=== PATIENT | female | born 1975 | race Caucasian/White ===

== ENCOUNTER 2017-03-19 00:38 | Inpatient (IN) ==
[2017-03-19 02:58] LABS: Basophils # 0.1 10*3/uL (0.0-0.2); Basophils % 0.7 % (0.0-0.8); Eosinophils # 0.1 10*3/uL (0.0-0.87); Eosinophils % 0.7 % (0.00-10.9); Hematocrit 38.6 VOL% (35.7-47.0); Hemoglobin 13.3 GM/DL (12.0-16.0); Immature Granulocytes % 0.1 %; Immature Granulocytes Absolute 0.01 #; Lymphocytes # 1.7 10*3/uL (1.4-4.0); Lymphocytes % 23.4 % (21.3-54.2); Mean Corpuscular HGB Conc 34.5 GM/DL (32-36); Mean Corpuscular Hemoglobin 32 PG (27-34); Mean Corpuscular Volume 92.1 FL (87-102); Mean Platelet Volume 12.7 FL (9.6-12.0); Monocytes # 0.5 10*3/uL (0.11-0.8); Monocytes % 6.3 % (1.7-12.7); Neutrophils # 5.1 10*3/uL (1.4-7.4); Neutrophils % 68.8 % (38.7-73.9); Platelet Count 194 T/CUMM (130-400); Red Blood Count 4.19 MC/CUMM (3.8-5.5); Red Cell Distribution Width 13.4 % (9.3-17.3); White Blood Count 7.5 T/CUMM (4-12)
[2017-03-19 03:07] LABS: Albumin 3.4 G/DL (3.4-5.0); Bilirubin,Total 0.4 MG/DL (0.2-1.0); Calcium 8.9 MG/DL (8.5-10.1); Osmolality,Calculated 283.3 MOS/KG (273-304); Potassium 3.3 MMOL/L (3.5-5.1); Total Protein 6.6 G/DL (6.4-8.3)
--- NOTE | 2017-03-19 04:04 | Emergency Department Note ---
Arrival - Arrival Chief Complaint: Chest Pain Stated Complaint: chest pain back hurting throwing up cant breathe ED Nursing Triage Note: Patient to triage with c/o chest pain and SOB that has been intermittently going on since 02/09/17, patient has been seen numerous times at another facility and dx with sarcoidosis and is scheduled to have PFT and CT performed this month but the pain and SOB became unbareable tonight. Patient states the pain is in the center of her chest, radiates through to her back and she has N/V and is dry heaving during triage. ekg obtained in triage. Mode of Arrival: Ambulatory Time Seen by Provider: 03/19/17 01:57 - History of Present Illness HPI Narrative: This is a 41-year-old white female who has had sarcoidosis Ruth more than 10 years ago who presents with intractable cough since February 09, 2017 for which she has been to her family physician who treated her with antibiotics inhalers and steroids without improvement who presents with ongoing intractable cough which has become so severe that she vomits. She has dyspnea on exertion of 10 feet. She denies any chest pain palpitations nor syncope. Date of Last Menstrual Period: "last month" Allergies/Adverse Reactions: Allergies Allergy/AdvReac Type Severity Reaction Status Date / Time cephalexin [From Keflex] Allergy Mild Unknown/Unable Verified 03/19/17 00:47 to obtain Home Medications: Home Medications Medication Instructions Recorded Confirmed Type Lactobacillus Combo No.6 1 each PO DAILY 08/27/15 08/28/15 History [Probiotic Complex] Norethindrone [Liza-Be] 0.35 mg PO DAILY 08/27/15 08/28/15 History Oxycodone HCl/Acetaminophen 1 each PO Q4HR PRN #15 tablet 08/28/15 Rx [Percocet 7.5-325 mg Tablet] Review of System - Review of System Constitutional: Absent: fever, night sweats Eyes: Absent: redness, vision change Respiratory: Present: cough, wheezing. Absent: respiratory distress Cardiovascular: Present: dyspnea on exertion, orthopnea. Absent: palpitations Gastrointestinal: Absent: nausea, vomiting, diarrhea, constipation Genitourinary female: Absent: dysuria, frequency Musculoskeletal: Absent: joint swelling, lower back pain Skin: Absent: rash, change in hair/nails Neurological: Absent: numbness, paresthesias Endocrine: Absent: polydipsia, polyuria Hematological/Lymphatic: Absent: easy bruising, lymphadenopathy Allergic/Immunologic: Absent: urticaria, itchy eyes Medical,Surgical,& Family Hx - Medical History Neurology: History of: TIA (28 years ago) No history of: Seizures Respiratory: History of: Respiratory Problems (sarcadosis surgery) Gastrointestinal: History of: GI Problems (occasional constipation) Hematology: History of: Bleeding Problems (RH NEGATIVE) Reproductive: History of: Ovarian Cysts - Surgical History HEENT Surgeries: Surgical HX of: Tonsilectomy & Adenoidectomy Orthopedic Surgeries: Surgical HX of;: Orthopedic Surgery (left ankle sx left ankle pin) - Social History Smoking Status: Never smoker Frequency of Alcohol Use: None Type of Drug Use: None Exam Vital Signs: Vital Signs Temperature 98.1 F 03/19/17 00:41 Pulse Rate 118 H 03/19/17 00:41 Respiratory Rate 18 03/19/17 00:55 Blood Pressure 141/117 03/19/17 00:41 O2 Sat by Pulse Oximetry 97 03/19/17 00:41 - General General appearance: alert, in no apparent distress - Eye Eye exam: Present: PERRL, EOMI - ENT ENT exam: Present: normal exam - Neck Neck exam: Present: normal inspection - Chest Chest inspection: Present: normal inspection, symmetric chest wall rise - Respiratory Respiratory exam: Present: rales - Cardiovascular Cardiovascular exam: Present: regular rate, normal rhythm - Abdominal Exam Abdominal exam: Present: soft, normal bowel sounds - Extremities Exam Extremities exam: Present: normal inspection, full ROM - Back Exam Back exam: Present: normal inspection, full ROM - Neurological Exam Neurological exam: Present: alert, oriented X3, CN II-XII intact - Psychiatric Psychiatric exam: Present: normal affect, normal mood - Skin Skin exam: Present: warm, dry Course Course Narrative: The patient's CT scan is consistent with congestive heart failure with bilateral pleural effusions and cardiomegaly. The exact cause of the congestive heart failure is not clear but may be due to sarcoidosis associated cardiomyopathy. Case was discussed with the hospitalist who agreed to admit the patient for further workup and treatment. Results - Labs CBC & BMP: 03/19/17 01:34 03/19/17 01:34 Disposition Clinical Impression: Congestive heart failure Disposition: Still a Patient Instructions: Sarcoidosis (ED) Additional Instructions: Because the patient appears to have new onset congestive heart failure with a history of sarcoidosis which may be causing sarcoidosis associated cardiomyopathy it seems reasonable patient should be admitted to the hospital for further evaluation and treatment. The case was discussed with the hospitalist.
[2017-03-19] MEDS ORDERED: FUROSEMIDE 40 MG/4 ML VIAL IV STA (04:44)
[2017-03-19] MEDS ORDERED: FUROSEMIDE 40 MG/4 ML VIAL ONE (05:04)
--- NOTE | 2017-03-19 05:38 | Hospitalist History & Physical ---
<Danni Eddy - Last Filed: 03/19/17 05:27> Assessment and Plan - Time spent with patient Time spent with patient: Less than 30 minutes (1) Congestive heart failure Status: Acute Assessment and plan: BNP 463 CTA chest pulmonary edema Trop 0.046 Lasix 40mg IV BID Telemetry bed O2 PRN Echo pending Cardiology consultation NTG SL PRN Current Visit: Yes (2) Hypokalemia Status: Acute Assessment and plan: KCL 40mEq po daily Current Visit: Yes History of Present Illness Chief complaint: shortness of breath History of present illness: Called to the ER for Ms. Mosley who is a 41 year old female that presented tonight complaining of shortness of breath. On February 08 when she went to bed she began feeling like she was smothering. She went to the ER at [facility] and received an inhaler and was told she had the heart of a 72 year old. She was awaiting an appointment with a director of partner marketing and a manager merchandising. She has both scheduled for March. For the past week, she states the shortness of breath has gotten considerably worse and has made it difficult to walk. She has had intermittent chest pain that waxes and wanes. Description of the pain is sharp, stabbing, and burning but does not radiate and is not associated with diaphoresis. No alleviating factors but lying down makes chest pain worse. She denies chest pain as of right now. Patient also complains of a dry cough for 1 week that has turned productive. She denies n/v/d or fevers. In the ER, Lasix 40mg IV was given. BNP 463. K 3.3, Trop 0.046. CTA pulmonary edema. EKG showed LBB. 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 Patient will be admitted to telemetry, serial EKGs and troponins, continued diuresis, and cardiology consultation. Home medications will be reconciled once confirmed. Patient is a full code. Home Medications Medication Instructions Recorded Confirmed Type Albuterol Neb [Proventil Neb] 1.25 mg RESP TX Q6H PRN 03/19/17 03/19/17 History Allergies Allergy/AdvReac Type Severity Reaction Status Date / Time cephalexin [From Keflex] Allergy Mild Unknown/Unable Verified 03/19/17 00:47 to obtain Medical,Surgical,& Family Hx - Medical History Cardio: History of: CHF No history of: Cardiac Dysrhythmia, Cerebrovascular Disease, Hypertension, [place] Psychological: History of: Anxiety Disorders No history of: Depression, Psychiatric/Substance Abuse Tx Neurology: History of: Cerebrovascular Accident, TIA (28 years ago) No history of: Brain Aneurysm, Seizures HEENT: No history of: HEENT Problems Endocrine: No history of: Endocrine Problems Rheumatology: No history of;: Rheumatological Problems Respiratory: History of: Respiratory Problems (sarcadosis surgery) Renal: No history of: Renal Problems Genitourinary: No history of: Problems Gastrointestinal: History of: GI Problems (occasional constipation) Musculoskeletal: History of: Herniated Disk Hematology: History of: Bleeding Problems (RH NEGATIVE), Clotting Problems (DVT to left leg) Reproductive: History of: Ovarian Cysts - Surgical History HEENT Surgeries: Surgical HX of: Tonsilectomy & Adenoidectomy Orthopedic Surgeries: Surgical HX of;: Orthopedic Surgery (left ankle sx left ankle pin) - Family History Family History: Reports;: Family Diabetes (mother), Family Heart Disease (mother ), Family Hypertension (mother and father), Family Stroke (mother) - Social History Smoking Status: Never smoker Frequency of Alcohol Use: None Type of Drug Use: None Marital Status: Lives With:: Spouse Functional capacity: independent ambulation - Constitutional Constitutional: Present: fatigue. Absent: anorexia, chills, frequent falls, headache(s), night sweats, weakness - EENT Eyes: Absent: blurry vision Ears: Absent: decreased hearing Nose, mouth and throat: Absent: headache(s), lip swelling, nasal congestion, throat swelling - Cardiovascular Cardiovascular: Present: chest pain at rest, dyspnea, dyspnea on exertion. Absent: edema, lightheadedness, orthopnea, PND - Respiratory Respiratory: Present: cough, dyspnea, dyspnea on exertion. Absent: hemoptysis, wheezing - Gastrointestinal Gastrointestinal: Present: nausea, vomiting. Absent: abdominal pain, diarrhea, dyspepsia - Genitourinary Genitourinary: Absent: difficulty urinating - Musculoskeletal Musculoskeletal: Present: back pain - Neurological Neurological: Absent: confusion, convulsions, dizziness, syncope - Psychiatric Psychiatric: Present: anxiety - Endocrine Endocrine: Absent: cold intolerance, heat intolerance - Hematologic/Lymphatic Hematologic/Lymphatic: Absent: easy bleeding, easy bruising Exam - Constitutional Vitals: Period Temp Pulse Resp BP Sys/Panchal Pulse Ox Last 24 Hr 98.1 F-98.1 F 118-118 18-20 141-141/117-117 97 General appearance: no acute distress, over weight - Head Head exam: Present: normal inspection, normocephalic - Eye Eye exam: Present: EOMI Pupils: Present: MONIKA, normal accommodation - ENT ENT exam: Present: normal exam - Neck Neck exam: Present: normal inspection - Respiratory Respiratory exam: Present: rales (Respirations even and non-labored with symmetrical rise and fall of chest noted. ) - Cardiovascular Cardiovascular exam: Present: regular rate and rhythm. Absent: diastolic murmur , systolic murmur - GI/Abdominal GI/Abdominal exam: Present: normal bowel sounds, soft. Absent: firm, tenderness - Extremities Exam Extremities exam: Present: normal inspection, normal capillary refill, full ROM , other (right lower leg paralysis) - Neurological Exam Neurological exam: Present: alert, oriented X3 (Makes good eye contact. Answers questions appropriately. ) - Psychiatric Psychiatric exam: Present: anxious - Skin Skin exam: Present: normal color, warm, dry, intact Results - Labs CBC & BMP: 03/19/17 01:34 03/19/17 01:34 Lab Results: I have reviewed the past 24 hour labs - EKG EKG results: interpreted by ERMD - Diagnostic Findings Procedure: CT - chest: report reviewed by me (pulmonary edema) <Nuria Vale - Last Filed: 03/19/17 12:02> Assessment and Plan (1) Congestive heart failure Status: Acute Current Visit: Yes (2) Hypokalemia Status: Acute Current Visit: Yes (3) Sarcoid Status: Acute Current Visit: Yes History of Present Illness History of present illness: Ms. Mosley is a 41 year old female admitted for workup of congestive heart failure. I have personally seen and examined this patient today. I agree with the below note as prepared by the advanced practice provider. I agree with the assessment and plan. Patient seen and examined. No acute events overnight. Case discussed with nursing staff. Labs reviewed. The patient has a history of sarcoidosis diagnosed approximately 16 years ago on lung biopsy. Her presentation may be related to her chronic history of sarcoidosis. Cardiology consult reviewed and echo pending. Consider pulmonary consultation. The patient and her family members expressed their understanding and all of their questions were answered appropriately. Further recommendations will depend on her response to therapy. Medical,Surgical,& Family Hx - Medical History Rheumatology: History of;: Rheumatological Problems (Sarcoidosis) Respiratory: History of: Respiratory Problems 12 point system: reviewed and no additional remarkable complaints except as stated - Cardiovascular Cardiovascular: Present: as per HPI, dyspnea, dyspnea on exertion, edema Exam - Constitutional Vitals: Period Temp Pulse Resp BP Sys/Panchal Pulse Ox Last 24 Hr 98.1 F-99.4 F 105-118 18-20 125-141/106-117 92-97 - Cardiovascular Cardiovascular exam: Present: regular rate and rhythm - Extremities Exam Extremities exam: Present: edema, other Results - Labs CBC & BMP: 03/19/17 01:34 03/19/17 01:34 Lab Results: I have reviewed the past 24 hour labs
[2017-03-19] MEDS ORDERED: NITROGLYCERIN SL 0.4 MG TABLET SL PRN (06:58)
[2017-03-19] MEDS ORDERED: guaiFENesin/DM ER 600-30 MG TABLET PO PRN (06:58)
[2017-03-19] MEDS ORDERED: MORPHINE 2 MG/1 ML SYRINGE IV PRN (06:58)
--- NOTE | 2017-03-19 07:16 | Order Completion Report ---
See report scanned to EMR
[2017-03-19] MEDS: ONDANSETRON 4 MG/2 ML VIAL IV PRN ×2 (08:18→16:48)
--- NOTE | 2017-03-19 08:54 | Order Completion Report ---
See report scanned to EMR
--- NOTE | 2017-03-19 09:06 | CT Report ---
Exam: CT angiography chest without and with intravenous contrast Clinical History: 41 years,Female,shortness of breath, chest pain Technique: Axial computed tomographic angiography images of the chest without and with intravenous contrast using pulmonary embolism protocol. The CT exam was performed using one or more of the following dose reduction techniques: Automated exposure control, adjustment of the mA and/or kV according to patient size, or use of iterative reconstruction technique. Contrast: 100 mL of Omnipaque 350 administered intravenously Comparison: No relevant comparison studies available Findings: Pulmonary arteries: No vascular intraluminal filling defects to suggest pulmonary embolism Aorta: No dissection or thoracic aortic aneurysm. Lungs: Central interlobular septal thickening with groundglass opacities. Pleural spaces: Moderate bilateral pleural effusions Heart: Cardiomegaly Mediastinum: Intact Bones/joints: Intact. No acute fracture. No dislocation. Soft tissues: Unremarkable. Lymph nodes: No enlarged lymph nodes Impression: 1. No evidence of pulmonary embolism 2. Pulmonary edema PROCEDURE INTERPRETED AT [facility] DEPARTMENT OF RADIOLOGY Final Report Signed by: Sameer Eden MD
[2017-03-19 09:10] LABS: Risk Ratio 4.5; VLDL CHOLESTEROL 51.8 MG/DL
[2017-03-19] MEDS: ENOXAPARIN 40 MG/0.4 ML SYRINGE SUBCUT SCH (09:21)
[2017-03-19] MEDS: POTASSIUM CHLORIDE 20 MEQ TABLET PO SCH (09:23)
[2017-03-19] MEDS: PANTOPRAZOLE 40 MG TABLET PO SCH (09:24)
[2017-03-19] MEDS: DOCUSATE SODIUM 100 MG CAPSULE PO SCH ×2 (09:24→21:36)
--- NOTE | 2017-03-19 09:38 | Cardiology Consult Note ---
Assessment and Plan (1) Congestive heart failure Status: Acute Assessment and plan: 81-year-old female, history of sarcoidosis, congenital neurological defect/ weakness, remote history of DVT, morbid obesity. Presented with pulmonary edema , acute CHF, left bundle branch block of unknown chronicity. 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 -Discussed rationale for cardiac workup, prognosis -Echo -Evaluate for secondary causes of cardiomyopathy. Check TFTs, iron/vit levels. She is not anemic -LDL normal -Continue diuresis with IV Lasix, replete and monitor electrolytes closely, keep on telemetry -Once stable, we may start beta-seth and RHONDA inhibitor for Cardiolite -She will need ischemic workup. 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 This is high risk for SCD. If no other etiology is established, we will need to pursue cardiac MRI, if that is positive for sarcoid involvement, she is a candidate for [employer]. Otherwise, we would just treat her medically, bridge with a LifeVest and reassess ejection fraction, CHF symptoms 3 months later -Cardiac Rehab consult. She is morbidly obese Current Visit: Yes (2) Sarcoid Status: Acute Current Visit: Yes (3) Hypokalemia Status: Acute Current Visit: Yes History of Present Illness - Data of Consult Patient: new to practice Consult date: 03/19/17 - Consult Narrative Reason for consult: chf, pulm edema History of present illness: Ms. Mosley is a 41 year old female, with history of congenital unilateral weakness , likely due to complications, remote history of DVT. She was diagnosed with sarcoid disease several years ago. She does not remember being a specialist or getting immunosuppressant treatment for this. Her symptoms were mostly shortness of breath and cough. She had some workup in the remote past, including a mediastinal biopsy. In January, she presented to [facility] with worsening shortness of breath, orthopnea. Outpatient evaluation was planned. She did not make it to the planned appointments, as they were set up in mid- March. She noticed worsening orthopnea shortness of breath and unable to get much sleep due to her symptoms recently. No leg swelling, no chest pain or fevers. Chest CT angiogram showed pulmonary edema, no PE. She has cardiomegaly. She got IV Lasix in the ER, with good symptomatic improvement. EKG sinus tachycardia, left bundle branch block. She denies syncope or palpitations. Troponin was normal, BNP was elevated. CC: Nuria Vale MD - Home Medications and Allergies Home Medications: Home Medications Medication Instructions Recorded Confirmed Type Albuterol Neb [Proventil Neb] 1.25 mg RESP TX Q6H PRN 03/19/17 03/19/17 History Allergies/Adverse Reactions: Allergies Allergy/AdvReac Type Severity Reaction Status Date / Time cephalexin [From Keflex] Allergy Mild Unknown/Unable Verified 03/19/17 00:47 to obtain 12 point system: reviewed and no additional remarkable complaints except as stated Medical,Surgical,& Family Hx - Medical History Cardio: History of: CHF, Cardiovascular Problems (cardiomyopathy; DVT L leg age 16) No history of: Cardiac Dysrhythmia, Cerebrovascular Disease, Hypertension, [place] Psychological: History of: Anxiety Disorders No history of: Depression, Psychiatric/Substance Abuse Tx Neurology: History of: Cerebrovascular Accident (as a child- no deficits), TIA ( 28 years ago) No history of: Brain Aneurysm, Seizures HEENT: No history of: HEENT Problems Endocrine: No history of: Endocrine Problems Rheumatology: No history of;: Rheumatological Problems Respiratory: History of: Pulmonary Hypertension (dx this hospital visit), Respiratory Problems (sarcadosis surgery) No history of: Obstructive Sleep Apnea Renal: No history of: Renal Problems Genitourinary: No history of: Problems Gastrointestinal: History of: GI Problems (occasional constipation) Musculoskeletal: History of: Back/Neck Problems (chronic pain), Herniated Disk, 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) Hematology: History of: Bleeding Problems (RH NEGATIVE), Clotting Problems (DVT to left leg) Reproductive: History of: Ovarian Cysts, Reproductive Problems ("frozen ovary") Other: History of: Miscellaneous Medical Problems (Sarcoidosis) - Surgical History Thoracic Surgeries: Patient denies;: Lobectomy Neurologic Surgeries: Patient denies: Brain Aneurysm, Neurologic Surgery HEENT Surgeries: Surgical HX of: Tonsilectomy & Adenoidectomy Abdominal Surgeries: Patient denies: Abdominal Surgery Reproductive Surgeries: Surgical HX of;: Gynecologic Surgery (Ovary removed) Patient denies;: Genitourinary Surgery Orthopedic Surgeries: Surgical HX of;: Orthopedic Surgery (left ankle sx left ankle pin) - Family History Family History: Reports;: Family Diabetes (mother), Family Heart Disease (mother ), Family Hypertension (mother and father), Family Stroke (mother) - Social History Smoking Status: Never smoker Frequency of Alcohol Use: None Type of Drug Use: None Physical Examination Vital Signs Temp Pulse Resp BP Pulse Ox 98.1 F 118 H 20 141/117 97 03/19/17 00:41 03/19/17 00:41 03/19/17 00:41 03/19/17 00:41 03/19/17 00:41 General: Present: No Apparent Distress HEENT: Present: Mucus Membranes Moist Neck: Present: Supple Neck, No Bruit, Other (Unable to assess JVD, thick neck) Cardiac: Present: Reg Rate and Rhythm, Systolic Murmur, Dilated, Other ( Tachycardia) Lungs: Present: Decreased Breath Sounds, Rales - Left, Rales - Right Neuro: Present: Grossly Intact Abdomen: Present: Soft, Active Bowel Sounds Skin: Present: Clear Extremities: Present: No Clubbing, No Cyanosis, No Edema Result/EKG - Labs CBC & BMP: 03/19/17 01:34 03/19/17 01:34 Lab Results: I have reviewed the past 24 hour labs Labs: Laboratory Results - last 24 hr 03/19/17 03/19/17 03/19/17 01:34 01:34 01:34 WBC 7.5 RBC 4.19 Hgb 13.3 Hct 38.6 MCV 92.1 MCH 32 MCHC 34.5 RDW 13.4 Plt Count 194 MPV 12.7 H Neut % (Auto) 68.8 Lymph % (Auto) 23.4 Dunn % (Auto) 6.3 Eos % (Auto) 0.7 Baso % (Auto) 0.7 Neut # (Auto) 5.1 Lymph # (Auto) 1.7 Dunn # (Auto) 0.5 Eos # (Auto) 0.1 Baso # (Auto) 0.1 Immature Gran % 0.1 Nucleated RBC % 0.0 Immature Gran # 0.01 Nucleated RBCs # 0.00 Immature Plt Fraction 0.0 Sodium 141 Potassium 3.3 L Chloride 107 Carbon Dioxide 23 Anion Gap 14.3 BUN 14 Creatinine 0.80 GFR Calculation 132 BUN/Creatinine Ratio 17.00 Glucose 132 H Calculated Osmolality 283.3 Calcium 8.9 Total Bilirubin 0.40 AST 50 H ALT 65 H Alkaline Phosphatase 70 Lactate Dehydrogenase 264 H Troponin I C-Reactive Protein < 0.31 B-Natriuretic Peptide Total Protein 6.6 Albumin 3.4 Globulin 3.2 Albumin/Globulin Ratio 1.0 L Triglycerides Cholesterol LDL Cholesterol VLDL Cholesterol HDL Cholesterol Heart Disease Risk Ratio 03/19/17 03/19/17 03/19/17 01:34 01:34 07:27 WBC RBC Hgb Hct MCV MCH MCHC RDW Plt Count MPV Neut % (Auto) Lymph % (Auto) Dunn % (Auto) Eos % (Auto) Baso % (Auto) Neut # (Auto) Lymph # (Auto) Dunn # (Auto) Eos # (Auto) Baso # (Auto) Immature Gran % Nucleated RBC % Immature Gran # Nucleated RBCs # Immature Plt Fraction Sodium Potassium Chloride Carbon Dioxide Anion Gap BUN Creatinine GFR Calculation BUN/Creatinine Ratio Glucose Calculated Osmolality Calcium Total Bilirubin AST ALT Alkaline Phosphatase Lactate Dehydrogenase Troponin I 0.046 H 0.045 C-Reactive Protein B-Natriuretic Peptide 463 H Total Protein Albumin Globulin Albumin/Globulin Ratio Triglycerides Cholesterol LDL Cholesterol VLDL Cholesterol HDL Cholesterol Heart Disease Risk Ratio 03/19/17 07:27 WBC RBC Hgb Hct MCV MCH MCHC RDW Plt Count MPV Neut % (Auto) Lymph % (Auto) Dunn % (Auto) Eos % (Auto) Baso % (Auto) Neut # (Auto) Lymph # (Auto) Dunn # (Auto) Eos # (Auto) Baso # (Auto) Immature Gran % Nucleated RBC % Immature Gran # Nucleated RBCs # Immature Plt Fraction Sodium Potassium Chloride Carbon Dioxide Anion Gap BUN Creatinine GFR Calculation BUN/Creatinine Ratio Glucose Calculated Osmolality Calcium Total Bilirubin AST ALT Alkaline Phosphatase Lactate Dehydrogenase Troponin I C-Reactive Protein B-Natriuretic Peptide Total Protein Albumin Globulin Albumin/Globulin Ratio Triglycerides 259 H Cholesterol 171 LDL Cholesterol 110.0 VLDL Cholesterol 51.8 HDL Cholesterol 38 L Heart Disease Risk Ratio 4.50 - EKG EKG results: interpreted by me Specialty Discharge - Follow Up or Referrals
[2017-03-19] MEDS: FUROSEMIDE 40 MG/4 ML VIAL IV SCH ×2 (09:52→15:57)
[2017-03-19 10:38] LABS: Troponin I Only 0.046 NG/ML (0.00-0.045)
--- NOTE | 2017-03-19 13:10 | Order Completion Report ---
See report scanned to EMR
--- NOTE | 2017-03-19 13:16 | Event Note ---
I updated the patient on her high risk cardiac findings. Will keep n.p.o. after midnight, if her CHF improves, we can pursue LHC tomorrow. Rest of the workup can be pursued as an outpatient. She will need a LifeVest on discharge.
--- NOTE | 2017-03-19 13:43 | Order Completion Report ---
See report scanned to EMR
[2017-03-19] MEDS ORDERED: IBUPROFEN 600 MG TABLET PO PRN (16:56)
[2017-03-19] MEDS: ZALEPLON 5 MG CAPSULE PO PRN (21:38)
[2017-03-20 06:13] LABS: Calcium 8.6 MG/DL (8.5-10.1); Osmolality,Calculated 283.1 MOS/KG (273-304); Potassium 3.6 MMOL/L (3.5-5.1)
[2017-03-20 06:17] LABS: % Iron Saturation 23.6 % (18-50); Ferritin 78.7 ng/ml (8-252)
[2017-03-20 06:25] LABS: Folate 7.4 NG/ML (5.4-24.0)
[2017-03-20 06:37] LABS: Free T4 (Free Thyroxine) 0.92 NG/DL (0.76-1.46); Thyroid Stimulating Hormone 0.974 uIU/ml (0.358-3.74)
[2017-03-20] MEDS: ENOXAPARIN 40 MG/0.4 ML SYRINGE SUBCUT SCH (06:40)
[2017-03-20] MEDS: FUROSEMIDE 40 MG/4 ML VIAL IV SCH ×2 (07:32→16:30)
--- NOTE | 2017-03-20 08:21 | Electrophysiology Progress Not ---
Assessment and Plan (1) Congestive heart failure Status: Acute Assessment and plan: 81-year-old female, history of sarcoidosis, congenital neurological defect/ weakness, remote history of DVT, morbid obesity. Presented with pulmonary edema , acute CHF, left bundle branch block of unknown chronicity. 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 TTE: LVEF 30%, no peric effusion -Interventional consult, may get LHC today. NPO -FU TFTs, iron/vit levels. 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 This is high risk for SCD. If no other etiology is established, we will need to pursue cardiac MRI, if that is positive for sarcoid involvement, she is a candidate for ENROLLMENT COORDINATOR-D. Otherwise, we would just treat her medically, bridge with a LifeVest and reassess ejection fraction, CHF symptoms 3 months later -Cardiac Rehab consult. She is morbidly obese Current Visit: Yes (2) Sarcoid Status: Acute Current Visit: Yes (3) Hypokalemia Status: Acute Current Visit: Yes Electrophysiology Subjective Interval history: She is feeling better, not orthopneic anymore. She had back pain this morning. Telemetry shows sinus rhythm, left bundle branch block, no sustained arrhythmia. Exam - Constitutional Vitals: Period Temp Pulse Resp BP Sys/Panchal Pulse Ox Last 24 Hr 96.2 F-98.3 F 93-105 16-20 109-139/69-115 90-92 General appearance: no acute distress, morbidly obese - Head Head exam: Present: normal inspection. Absent: contusion, hematoma - Eye Eye exam: Absent: periorbital swelling, scleral icterus Pupils: Absent: dilated - ENT ENT exam: Present: normal external ear exam - Neck Neck exam: Present: other (Unable to assess for JVD, thick neck) - Respiratory Respiratory exam: Present: clear to auscultation bilaterally. Absent: chest wall tenderness, rhonchi, wheezes - Cardiovascular Cardiovascular exam: Present: regular rate and rhythm, systolic murmur. Absent : JVD, tachycardia - GI/Abdominal GI/Abdominal exam: Present: normal bowel sounds. Absent: distended - Extremities Exam Extremities exam: Present: normal inspection, normal capillary refill, edema (1+ ) - Back Exam Back exam: Present: normal inspection - Neurological Exam Neurological exam: Present: alert, oriented X3 - Psychiatric Psychiatric exam: Present: normal affect, normal mood. Absent: anxious Results - Labs CBC & BMP: 03/19/17 01:34 03/20/17 04:25 Lab Results: I have reviewed the past 24 hour labs Specialty Discharge - Follow Up or Referrals
[2017-03-20] MEDS: ONDANSETRON 4 MG/2 ML VIAL IV PRN (08:30)
[2017-03-20] MEDS: DOCUSATE SODIUM 100 MG CAPSULE PO SCH ×2 (09:05→22:06)
--- NOTE | 2017-03-20 09:16 | Cardiology Progress Note ---
Cardiology - PN: Subj Interval history: Cardiology note 41-year-old woman with biopsy-proven sarcoidosis at age 24. Presents with first episode CHF She had atypical chest pain on admission EKG shows left bundle branch block Regular rhythm no gallop Decreased breath sounds but clear Femoral pulses are 2+ and deep. Distal pulses 2+. Recent echo showed ejection fraction of 30% with grade 3 diastolic dysfunction, structurally normal valves, moderate TR PA pressure 55 Impression Cardiomyopathy EF 30% with grade 3 diastolic dysfunction. First episode congestive heart failure Sarcoidosis diagnosed at age 24 Chronic left bundle branch block Morbid obesity Rule out DEION Lifetime non-smoker Hypokalemia corrected Atypical chest pain Plan Cardiac cath by Dr. Butler. Procedure, risk benefit discussed with patient and her . All questions answered. He agrees to proceed as outlined. Exam (Progress Note) - Constitutional Vitals: Period Temp Pulse Resp BP Sys/Panchal Pulse Ox Last 24 Hr 96.2 F-98.3 F 93-105 16-20 109-139/69-115 90-92 Result/EKG - Labs CBC & BMP: 03/19/17 01:34 03/20/17 04:25 Labs: Laboratory Results - last 24 hr 03/19/17 03/19/17 03/20/17 07:27 09:56 04:25 Sodium 142 Potassium 3.6 Chloride 105 Carbon Dioxide 28 Anion Gap 12.6 BUN 17 Creatinine 0.70 GFR Calculation 156 BUN/Creatinine Ratio 24.00 H Glucose 89 Calculated Osmolality 283.1 Calcium 8.6 Magnesium 2.0 Iron TIBC % Saturation Ferritin Total Creatine Kinase 69 CK-MB (CK-2) < 1.0 Troponin I 0.046 H B-Natriuretic Peptide Triglycerides 259 H Cholesterol 171 LDL Cholesterol 110.0 VLDL Cholesterol 51.8 HDL Cholesterol 38 L Heart Disease Risk Ratio 4.50 Vitamin B12 Folate Free T4 TSH 3rd Generation 03/20/17 03/20/17 03/20/17 04:25 04:25 04:25 Sodium Potassium Chloride Carbon Dioxide Anion Gap BUN Creatinine GFR Calculation BUN/Creatinine Ratio Glucose Calculated Osmolality Calcium Magnesium Iron 62 TIBC 263 % Saturation 23.6 Ferritin 78.7 Total Creatine Kinase CK-MB (CK-2) Troponin I B-Natriuretic Peptide 530 H Triglycerides Cholesterol LDL Cholesterol VLDL Cholesterol HDL Cholesterol Heart Disease Risk Ratio Vitamin B12 Folate Free T4 0.92 TSH 3rd Generation 0.974 03/20/17 04:25 Sodium Potassium Chloride Carbon Dioxide Anion Gap BUN Creatinine GFR Calculation BUN/Creatinine Ratio Glucose Calculated Osmolality Calcium Magnesium Iron TIBC % Saturation Ferritin Total Creatine Kinase CK-MB (CK-2) Troponin I B-Natriuretic Peptide Triglycerides Cholesterol LDL Cholesterol VLDL Cholesterol HDL Cholesterol Heart Disease Risk Ratio Vitamin B12 521 Folate 7.4 Free T4 TSH 3rd Generation Specialty Discharge - Follow Up or Referrals
[2017-03-20] MEDS ORDERED: MAGNESIUM SULF RIDER 2 GM in PREMIX 1 EACH IV PRN (09:17)
[2017-03-20] MEDS ORDERED: POTASSIUM CHLORIDE RIDER 10 MEQ in PREMIX 1 EACH IV PRN (09:17)
[2017-03-20] MEDS ORDERED: DIAZEPAM 5 MG TABLET PO ONE (09:17)
[2017-03-20] MEDS ORDERED: diphenhydrAMINE CAP 25 MG CAPSULE PO ONE (09:17)
--- NOTE | 2017-03-20 09:17 | History and Physical Update ---
Sedation H&P Update - History and Physical H&P was reviewed, the patient examined and there: are no changes in the patients condition since last H&P was completed. - Dictation Physical: refer to H&P completed by admitting physician - Sedation ASA Class: II Airway Assessment: Class II: Soft palate, uvula, fauces visible
[2017-03-20] MEDS ORDERED: SODIUM CHLORIDE 0.45% 1,000 ML IV SCH (09:30)
[2017-03-20] MEDS ORDERED: PROMETHAZINE 25 MG/1 ML VIAL ONE (09:44)
[2017-03-20] MEDS ORDERED: PROMETHAZINE 25 MG/1 ML VIAL IM ONE (09:45)
[2017-03-20] MEDS: POTASSIUM CHLORIDE 20 MEQ TABLET PO SCH (09:51)
[2017-03-20] MEDS: PANTOPRAZOLE 40 MG TABLET PO SCH (09:51)
[2017-03-20 10:08] LABS: INR 1.2; PT Patient Result 12.3 SECS
--- NOTE | 2017-03-20 10:59 | Hospitalist Progress Note ---
Assessment and Plan (1) Congestive heart failure Status: Acute Assessment and plan: Continue Lasix and Aldactone. Left heart cath planned for later today. Start Aldactone Start RHONDA inhibitor Continue Lasix Follow-up left heart cath report Current Visit: Yes Qualifiers: Congestive heart failure type: systolic Congestive heart failure chronicity : acute on chronic Qualified Code(s): I50.23 - Acute on chronic systolic ( congestive) heart failure (2) Hypokalemia Status: Resolved Assessment and plan: Replaced. Potassium 3.6. Current Visit: Yes (3) Sarcoid Status: Acute Current Visit: Yes Hospitalist: Subjective Interval history: Patient seen and examined. No acute events overnight. Case discussed with nursing staff. Labs reviewed. Echocardiogram reviewed shows an ejection fraction of 30%. Left heart cath planned for today to rule out ischemic cardiomyopathy. The patient's having nausea and anxiety this morning and is receiving Zofran and Phenergan for Exam - Constitutional Vitals: Period Temp Pulse Resp BP Sys/Panchal Pulse Ox Last 24 Hr 96.2 F-98.3 F 93-105 16-20 109-139/69-115 90-92 Exam: Constitutional System: No distress. No tremulousness. Head: Normocephalic, atraumatic. Ears, Nose and Throat System: No pain or tenderness. No epistaxis or discharge Eyes System: Pupils equal, round, and reactive. Extraocular muscles intact. Neck: Supple, without adenopathy, No jugular venous distention. No thyromegaly, neck mass, or prior surgery apparent. Respiratory System: Chest clear to auscultation. Cardiovascular System: Heart with regular rate and rhythm. No murmur. GI System: Abdomen soft, nontender. Normo active bowel sounds present. Musculoskeletal System: limbs with minimal pedal edema. Full distal pulses. Normal capillary refill. Neurological System: No discernable sensory deficit. No aphasia Psychiatric System: Conversation is rational Results - Labs CBC & BMP: 03/19/17 01:34 03/20/17 04:25 Lab Results: I have reviewed the past 24 hour labs Specialty Discharge - Follow Up or Referrals
[2017-03-20] MEDS ORDERED: ASPIRIN 325 MG TABLET ONE (11:46)
[2017-03-20] MEDS ORDERED: ASPIRIN 325 MG TABLET PO ONE (11:47)
--- NOTE | 2017-03-20 11:55 | History and Physical Update ---
Sedation H&P Update - History and Physical H&P was reviewed, the patient examined and there: are no changes in the patients condition since last H&P was completed. - Dictation Physical: refer to H&P completed by admitting physician - Physical Exam Mental Status: alert and oriented Heart: regular rate and rhythm Lung: clear to auscultation Abdomen: within normal limits Vitals: within normal limits - Sedation Plan for Sedation: minimal Patient Consent: Procedure disscussed with patient and patinet has consented., Risks and benefits were discussed with patient,including infection,, bleeding, injury to surrounding structures, seizure, temporary nerve, Patient understands and accepts potential risks/benefits and agrees to, proceed. (Left heart cath and possible PTCA or stent were discussed with the patient. The risk of the procedure include but are not limited to a small risk of injury to the vessel, abnormal heart rhythm, stroke, heart attack, need for emergent surgery, contrast reaction, restenosis, infection, or . The patient voices understanding, agrees with the plan, and desires to proceed with the heart catheterization.) ASA Class: II Airway Assessment: Class II: Soft palate, uvula, fauces visible
[2017-03-20] MEDS ORDERED: MIDAZOLAM 2 MG/2 ML VIAL ONE (12:06)
[2017-03-20] MEDS ORDERED: LIDOCAINE 1% 20 ML VIAL ONE (12:06)
[2017-03-20] MEDS ORDERED: MEPERIDINE 25 MG/1 ML VIAL ONE (12:06)
--- NOTE | 2017-03-20 14:50 | Operative Note ---
Date of procedure: 03/20/17 Procedure Preformed: Left heart cath Coronary angiography Left ventriculography Angiogram of the right femoral artery Angio-Seal of the right femoral artery-successful Surgeon / Physician: Jr Butler Customer Operations Specialist: Angeles Eli Post-op diagnosis: same (Atypical chest pain, new onset heart failure, cardiomyopathy, EF by echocardiogram of 30%. Evaluate for underlying ischemia as a cause of the cardiomyopathy and chest pain) Findings: Impression: No significant obstructive coronary disease-minimal luminal irregularities Mild distal vessel tortuosities Severe global left systolic dysfunction, overall LVEF is about 20% Moderate LV enlargement 3+ MR Severe elevation of LVEDP, 36 mmHg Angiogram of the right femoral artery Angio-Seal right femoral artery-successful Plan/recommendations: Based on the study, the patient's atypical chest pain and her cardiomyopathy is not due to significant ischemic heart disease. Dr. Aidan Moore will decide on further medical management of her cardiomyopathy. Her QRS is wide, so she might be as a candidate for CARPENTER APPRENTICE-D, at some point. The patient will have risk factors optimized. The patient will be on antiplatelet medications to include aspirin indefinitely. Addenda: I saw the patient post-cath. the groin puncture site and distal pulse are stable. vital signs are stable and the patient will be observed closely overnight. Specimens: none sent Estimated blood loss: minimal Condition: stable Anesthesia: local, conscious sedation Disposition: floor
[2017-03-20] MEDS ORDERED: SODIUM CHLORIDE 0.9% 1,000 ML IV SCH (15:00)
[2017-03-20] MEDS: SPIRONOLACTONE 25 MG TABLET PO SCH ×2 (17:26→22:06)
--- NOTE | 2017-03-20 17:54 | Rheumatology Consultation ---
Assessment and Plan - Time spent with patient Time spent with patient: Greater than 30 minutes (1) Congestive heart failure Status: Acute Assessment and plan: Mrs. Mosley a 41 Y F is admitted at [facility] with new onset Congestive heart failure. 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 She is already scheduled for cardiac cath today for evaluation of CAD. *I recommend Cardiac MRI in order to evaluate patient for Sarcoid related Cardiomyopathy *Continue medical management for CHF as per Epidemiologist recommendation *Will fu patient I am thankful to primary team for providing me opportunity to participate in patient care. Current Visit: Yes Qualifiers: Congestive heart failure type: systolic Congestive heart failure chronicity : acute on chronic Qualified Code(s): I50.23 - Acute on chronic systolic ( congestive) heart failure (2) Sarcoid Status: Acute Current Visit: Yes History of Present Illness - Data of Consult Patient: new to practice Consult date: 03/20/17 - Consult Narrative Reason for consult: suspected sarcoid related Cardiomyopathy History of present illness: Ms. Mosley is a 41 year old female with history of pulmonary sarcoidosis diagnosed more than 15 years ago based on pulmonary symptoms and biopsy. She received systemic sterids for 12 months or more which improved her symptoms and she stopped taking prednisone and did not follow with [facility]. She was doing fairly well till last few weeks she developed gradual onset dyspnea on exertion, got worse, associated with PND. She got admit at [facility] for further evaluation of new onset dyspnea and initial work up reported CT chest pulmonary edema without lymphadenopathy. TTE reported Reduced EF and CHF. She was started on medical management for CHF. Epidemiologist Dr. Moore evaluated patient and scheduled for cardiac cath to evaluate for coronary artery disease. Based on prior h/o Sarcoidosis, Cardiomyopathy 2* Sarcoidosis is suspected. Rheumatology consult for requested for further evaluation. According to patient, She developed gradual onset symptoms, got worse over last few weeks. She denies fever, chills, night sweats, weight loss, episode of pink eyes, dry eyes, dry mouth, abdominal pain, diarrhea, joints pain or neuropathy related symptoms. CC: Nuria Vale MD - Home Medications and Allergies Home Medications: Home Medications Medication Instructions Recorded Confirmed Type Albuterol Neb [Proventil Neb] 1.25 mg RESP TX Q6H PRN 03/19/17 03/19/17 History Allergies/Adverse Reactions: Allergies Allergy/AdvReac Type Severity Reaction Status Date / Time cephalexin [From Keflex] Allergy Mild Unknown/Unable Verified 03/19/17 00:47 to obtain - Constitutional Constitutional: Absent: fatigue, fever(s), headache(s), increased appetite, night sweats, weakness, weight gain, weight loss - EENT Eyes: Absent: loss of vision Ears: Absent: ear discharge, ear pain Nose, mouth and throat: Absent: hoarseness, nasal congestion, neck mass, neck pain, sinus pressure, sore throat, throat swelling - Cardiovascular Cardiovascular: Present: chest pain with activity - Respiratory Respiratory: Present: cough, dyspnea, dyspnea on exertion. Absent: hemoptysis, wheezing - Gastrointestinal Gastrointestinal: Absent: abdominal pain, constipation, diarrhea, heartburn, nausea, vomiting - Genitourinary Genitourinary: Absent: flank pain, hematuria - Musculoskeletal Musculoskeletal: Absent: arthralgias, back pain, joint swelling, muscle cramps, muscle weakness - Neurological Neurological: Absent: confusion, focal weakness, frequent falls, memory loss, numbness, paresthesias - Psychiatric Psychiatric: Absent: anxiety, difficulty concentrating - Endocrine Endocrine: Absent: heat intolerance, polydipsia - Hematologic/Lymphatic Hematologic/Lymphatic: Absent: lymphadenopathy Medical,Surgical,& Family Hx - Medical History Cardio: History of: CHF, Cardiovascular Problems (cardiomyopathy; DVT L leg age 16) No history of: Cardiac Dysrhythmia, Cerebrovascular Disease, Hypertension, [place] Psychological: History of: Anxiety Disorders No history of: Depression, Psychiatric/Substance Abuse Tx Neurology: History of: Cerebrovascular Accident (as a child- no deficits), TIA ( 28 years ago) No history of: Brain Aneurysm, Seizures HEENT: No history of: HEENT Problems Endocrine: No history of: Endocrine Problems Rheumatology: History of;: Rheumatological Problems (Sarcoidosis) Respiratory: History of: Pulmonary Hypertension (dx this hospital visit), Respiratory Problems No history of: Obstructive Sleep Apnea Renal: No history of: Renal Problems Genitourinary: No history of: Problems Gastrointestinal: History of: GI Problems (occasional constipation) Musculoskeletal: History of: Back/Neck Problems (chronic pain), Herniated Disk, 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) Hematology: History of: Bleeding Problems (RH NEGATIVE), Clotting Problems (DVT to left leg) Reproductive: History of: Ovarian Cysts, Reproductive Problems ("frozen ovary") Other: History of: Miscellaneous Medical Problems (Sarcoidosis) - Surgical History Thoracic Surgeries: Patient denies;: Lobectomy Neurologic Surgeries: Patient denies: Brain Aneurysm, Neurologic Surgery HEENT Surgeries: Surgical HX of: Tonsilectomy & Adenoidectomy Abdominal Surgeries: Patient denies: Abdominal Surgery Reproductive Surgeries: Surgical HX of;: Gynecologic Surgery (Ovary removed) Patient denies;: Genitourinary Surgery Orthopedic Surgeries: Surgical HX of;: Orthopedic Surgery (left ankle sx left ankle pin) - Family History Family History: Reports;: Family Diabetes (mother), Family Heart Disease (mother ), Family Hypertension (mother and father), Family Stroke (mother) - Social History Smoking Status: Never smoker Frequency of Alcohol Use: None Type of Drug Use: None Exam Rheumatology - Constitutional Vitals: Vital Signs Temp Pulse Resp BP Pulse Ox Pulse Ox 03/20/17 16:30 105 H 20 119/63 99 03/20/17 16:00 101 H 18 138/82 99 03/20/17 15:30 92 H 16 126/83 99 03/20/17 15:20 97.9 F 99 H 16 125/91 99 03/20/17 15:00 98 H 16 121/86 99 03/20/17 14:45 101 H 16 127/70 99 91 L 03/20/17 07:27 97.6 F 104 H 18 112/89 92 L 03/20/17 04:00 96.9 F L 102 H 18 139/115 91 L 03/20/17 02:20 16 03/20/17 00:05 96.2 F L 93 H 18 109/69 90 L 03/19/17 20:10 98.1 F 98 H 18 114/82 90 L 03/19/17 18:00 16 General appearance: over weight, no no acute distress - Head Head exam: Present: normal inspection - Eye Eye exam: Present: EOMI Pupils: Present: MONIKA - Neck Neck exam: Absent: lymphadenopathy, thyromegaly - Respiratory Respiratory exam: Absent: decreased breath sounds, rales - Cardiovascular Cardiovascular exam: Present: regular rate and rhythm - GI/Abdominal GI/Abdominal exam: Absent: normal bowel sounds, distended, guarding, tenderness , rebound - Extremities Exam Extremities exam: Present: normal inspection, full ROM - Back Exam Back exam: Present: normal inspection - Neurological Exam Neurological exam: Present: oriented X3, CN II-XII intact, reflexes normal - Skin Skin exam: Present: normal color - Lymphatic Lymphatic: Present: no cervical lymphadenopathy Results - Labs CBC & BMP: 03/19/17 01:34 03/20/17 04:25 Quality Measures - VTE Contraindication to Pharmacological VTE Prophylaxis: High Risk of Bleeding Specialty Discharge - Follow Up or Referrals
[2017-03-21] MEDS ORDERED: guaiFENesin/CODEINE 5 ML LIQUID PO PRN (00:44)
[2017-03-21] MEDS ORDERED: ACETAMINOPHEN 325 MG TABLET PO PRN (00:51)
[2017-03-21] MEDS ORDERED: FUROSEMIDE 40 MG/4 ML VIAL IV ONE (00:52)
[2017-03-21] MEDS ORDERED: POTASSIUM CHLORIDE 20 MEQ TABLET PO ONE (00:54)
--- NOTE | 2017-03-21 00:58 | Event Note ---
RN notified of a temperature of 101 and patient has continued to cough. Upon assessment of patient, she does have a fierce, non-productive cough with wheezes and rales on the right lower base, otherwise clear. Echo today showed EF 30%. Continued diuresis with IV Lasix and po Spironolactone 25mg po BID. Will draw blood and urine cultures, tylenol PRN, cough medicine PRN, Lasix 40mg IV, and CXR. Will repeat lab work at 4AM to check K and replace if needed. Will start patient on Rocephin 1gram IV q12.
[2017-03-21] MEDS ORDERED: LEVOFLOXACIN INJ 750 MG in PREMIX 1 EACH IV SCH (01:00)
[2017-03-21 01:17] LABS: Basophils # 0.1 10*3/uL (0.0-0.2); Basophils % 0.4 % (0.0-0.8); Eosinophils # 0.1 10*3/uL (0.0-0.87); Eosinophils % 0.5 % (0.00-10.9); Hematocrit 39.3 VOL% (35.7-47.0); Hemoglobin 13.5 GM/DL (12.0-16.0); Immature Granulocytes % 0.3 %; Immature Granulocytes Absolute 0.03 #; Lymphocytes # 1.5 10*3/uL (1.4-4.0); Lymphocytes % 12.7 % (21.3-54.2); Mean Corpuscular HGB Conc 34.4 GM/DL (32-36); Mean Corpuscular Hemoglobin 32 PG (27-34); Mean Corpuscular Volume 92.7 FL (87-102); Monocytes # 0.9 10*3/uL (0.11-0.8); Monocytes % 7.7 % (1.7-12.7); Neutrophils % 78.4 % (38.7-73.9); Platelet Count 195 T/CUMM (130-400); Red Blood Count 4.24 MC/CUMM (3.8-5.5); Red Cell Distribution Width 13.7 % (9.3-17.3); White Blood Count 11.5 T/CUMM (4-12)
[2017-03-21] MEDS: ZALEPLON 5 MG CAPSULE PO PRN ×3 (01:35→23:50)
[2017-03-21 01:46] LABS: Calcium 8.6 MG/DL (8.5-10.1); Magnesium 1.8 MG/DL (1.8-2.4); Osmolality,Calculated 283.3 MOS/KG (273-304); Potassium 3.6 MMOL/L (3.5-5.1)
[2017-03-21] MEDS: ENOXAPARIN 40 MG/0.4 ML SYRINGE SUBCUT SCH (06:22)
[2017-03-21] MEDS: ONDANSETRON 4 MG/2 ML VIAL IV PRN ×3 (06:25→20:49)
--- NOTE | 2017-03-21 07:32 | XRay Report ---
History is short of breath and coughing Comparison 08/27/2015 The heart is enlarged with vascular prominence and development of moderate diffuse interstitial pulmonary opacities without more focal consolidation seen. Hilar contours unchanged accounting for technique Impression: Interval development of moderate bilateral infiltrates versus edema PROCEDURE INTERPRETED AT [facility] DEPARTMENT OF RADIOLOGY Final Report Signed by: Dr. Katie Tejada
--- NOTE | 2017-03-21 08:42 | Order Completion Report ---
See report scanned to EMR
[2017-03-21] MEDS: PANTOPRAZOLE 40 MG TABLET PO SCH (08:46)
[2017-03-21] MEDS: SPIRONOLACTONE 25 MG TABLET PO SCH ×2 (08:46→20:47)
[2017-03-21] MEDS: POTASSIUM CHLORIDE 20 MEQ TABLET PO SCH (08:46)
[2017-03-21] MEDS: FUROSEMIDE 40 MG/4 ML VIAL IV SCH (08:47)
[2017-03-21] MEDS: DOCUSATE SODIUM 100 MG CAPSULE PO SCH ×2 (08:47→20:48)
[2017-03-21] MEDS ORDERED: LISINOPRIL 2.5 MG TABLET PO SCH (09:00)
--- NOTE | 2017-03-21 09:07 | Electrophysiology Progress Not ---
Assessment and Plan (1) Congestive heart failure Status: Chronic Assessment and plan: 81-year-old female, history of sarcoidosis, congenital neurological defect/ weakness, remote history of DVT, morbid obesity. Presented with pulmonary edema , acute CHF, left bundle branch block of unknown chronicity. 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 TTE: LVEF 30%, no peric effusion LHC: minimal CAD, EDP 36, severe CMP -We will get an appointment for cardiac MRI, [place], Dr. Blayne Cline. -Recommend to start beta-seth and RHONDA inhibitor, when CHF, volume overload improves -Follow-up with EP after the cardiac MRI. 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 This is high risk for SCD. If positive for sarcoid involvement , she is a candidate for SOCIAL MEDIA INTERN-D now. Otherwise, we would just treat her medically, bridge with a LifeVest and reassess ejection fraction, CHF symptoms 3 months later -Set up LifeVest on discharge I will sign off, please call with further questions Current Visit: Yes Qualifiers: Congestive heart failure type: systolic Congestive heart failure chronicity : acute on chronic Qualified Code(s): I50.23 - Acute on chronic systolic ( congestive) heart failure (2) Sarcoid Status: Chronic Current Visit: Yes (3) Hypokalemia Status: Resolved Current Visit: Yes Electrophysiology Subjective Interval history: [facility] showed no significant CAD. She has severe, cardiomyopathy nonischemic. Telemetry sinus tachycardia, LBBB. He is more short of breath today, temperature was mildly elevated. WBC increase She has mild shortness of breath with ambulation, no leg swelling Exam - Constitutional Vitals: Period Temp Pulse Resp BP Sys/Panchal Pulse Ox Last 24 Hr 97.9 F-101.1 F 92-108 16-20 109-142/63-91 91-99 General appearance: no acute distress, morbidly obese - Head Head exam: Present: normal inspection. Absent: contusion - Eye Eye exam: Absent: periorbital swelling, scleral icterus Pupils: Absent: dilated - ENT ENT exam: Present: normal external ear exam - Neck Neck exam: Present: normal inspection - Respiratory Respiratory exam: Present: clear to auscultation bilaterally. Absent: chest wall tenderness - Cardiovascular Cardiovascular exam: Present: regular rate and rhythm, systolic murmur, tachycardia. Absent: JVD - GI/Abdominal GI/Abdominal exam: Present: normal bowel sounds. Absent: distended - Extremities Exam Extremities exam: Present: normal inspection, normal capillary refill. Absent: edema - Back Exam Back exam: Present: normal inspection - Neurological Exam Neurological exam: Present: alert, oriented X3 - Psychiatric Psychiatric exam: Present: normal affect, normal mood - Skin Skin exam: Present: normal color, warm. Absent: cyanosis Results - Labs CBC & BMP: 03/21/17 01:09 03/21/17 01:09 Lab Results: I have reviewed the past 24 hour labs Quality Measures - VTE Contraindication to Pharmacological VTE Prophylaxis: High Risk of Bleeding Specialty Discharge - Follow Up or Referrals
--- NOTE | 2017-03-21 09:35 | Cardiology Progress Note ---
Mike Temple Vanessa RN, am scribing for, and in the presence of, Nish Moore MD 09:35. Assessment and Plan - Time spent with patient Time spent with patient: Greater than 30 minutes (1) Congestive heart failure Status: Chronic Assessment and plan: SEE PLAN OF CARE LISTED BELOW. Current Visit: Yes Qualifiers: Congestive heart failure type: systolic Congestive heart failure chronicity : acute on chronic Qualified Code(s): I50.23 - Acute on chronic systolic ( congestive) heart failure (2) Cardiomyopathy Status: Acute Assessment and plan: SEE PLAN OF CARE LISTED BELOW. Current Visit: Yes (3) Sarcoid Status: Chronic Assessment and plan: SEE PLAN OF CARE LISTED BELOW. Current Visit: Yes Cardiology - PN: Subj Interval history: Drug Discovery Informatics Specialist: Dr. Sal (new) SUMMARY: Mrs. Mosley, 41 year old WF, PMHx sarcoidosis (biopsy confirmed), remote DVT and TIA, morbid obesity. Admitted to [facility] on 03/19 with acute dyspnea, pulm edema, and found to be in new onset systolic CHF and LBBB of unknown chronicity. Echocardiogram with severely reduced LVEF 30%, moderate diastolic dysfunction, moderate TR and pulm HTN (PAP 55mmHg). CAD ruled out per [facility] on 03/[address] Butler with cath showing no significant obstructive disease, minimal luminal irregularities only, LVEDP 36. Has been evaluated by Dr. Sal for AUTOMOTIVE SERVICE CASHIER-D placement. Upon discharge, will need cardiac MRI (Dr. Blayne Cline, [place]) to evaluate for sarcoid cardiomyopathy. Being evaluated for LifeVest at discharge with medical management to ensue. Since admission, patient has been started on aggressive IV diuresis with good response. March: Patient resting quietly in no acute respiratory distress this morning. Reports she did not sleep well due to severe cough, shortness of breath, and wheezing. Febrile overnight with temp 101.1F, improved this morning. Given IV Lasix with improvement of symptoms. Urine and blood cultures pending. Has been started on IV Rocephin. This morning, she is having no orthopnea, no dyspnea, and no chest pain. SBP 125-140 mmHg. Tele: SR, mild ST with HR 90s-105, LBBB. Sleep medicine consult today. ROS: -no dyspnea, orthopnea, or wheeze. admits cough. -no chest pain or tightness, no palpitations. -no abd pain, N/V. appetite is good. Labs today reviewed: Sodium 141 potassium 3.6 magnesium 1.8 Chloride 102 CO2 30 BUN 17 creatinine 0.9 Glucose 114 Cardiology addendum Patient examined chart reviewed and discussed with nurse Yodit Mckeon RN. Nonischemic cardiomyopathy, sarcoid cardiopathy suspected. Dilated ventricle severe global hypokinesis EF 20% with patent coronaries by cath yesterday Right groin soft and dry. No bruit or hematoma. Distal pulses 2+ symmetric. 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 twice daily Increase lisinopril 2.5 mg twice daily Begin carvedilol 3.125 g twice daily BMP in a.m. Consult Dr. Chinchilla for sleep study evaluation Uptitrate meds as BP permits We will make arrangements for cardiac MRI in [place] Exam (Progress Note) - Constitutional Vitals: Period Temp Pulse Resp BP Sys/Panchal Pulse Ox Last 24 Hr 97.9 F-101.1 F 92-108 16-20 109-142/63-91 91-99 Exam: General appearance: no acute distress, morbidly obese. Pleasant, cooperative. - Head Head exam: Present: normal inspection. Absent: contusion, hematoma. No periorbital swelling. - Eye Eye exam: Absent: periorbital swelling, scleral icterus Pupils: Absent: dilated - ENT ENT exam: Present: normal external ear exam - Neck Neck exam: No tenderness. Unable to assess for JVD due to body habitus - Respiratory Respiratory exam: Present: clear to auscultation bilaterally. Absent: chest wall tenderness, rhonchi, wheezes. Not requiring supplemental oxygen. - Cardiovascular Cardiovascular exam: Present: regular rate and rhythm, systolic murmur, mild tachycardia. Absent: Bradycardia - GI/Abdominal GI/Abdominal exam: Present: normal bowel sounds, soft, obese. Absent: distended , firm - Extremities Exam Extremities exam: Present: normal inspection, normal capillary refill, edema (1+ ) BLEs - Back Exam Back exam: Present: normal inspection. No tenderness - Neurological Exam Neurological exam: Present: alert, oriented X3. Grossly intact. No resting tremor. - Psychiatric Psychiatric exam: Present: normal affect, normal mood. Absent: anxious, depressed Result/EKG - Labs CBC & BMP: 03/21/17 01:09 03/21/17 01:09 Lab Results: I have reviewed the past 24 hour labs Labs: Laboratory Results - last 24 hr 03/20/17 03/20/17 03/21/17 09:43 11:35 01:09 WBC 11.5 D RBC 4.24 Hgb 13.5 Hct 39.3 MCV 92.7 MCH 32 MCHC 34.4 RDW 13.7 Plt Count 195 MPV 12.0 Neut % (Auto) 78.4 H Lymph % (Auto) 12.7 L [place] % (Auto) 7.7 Eos % (Auto) 0.5 Baso % (Auto) 0.4 Neut # (Auto) 9.0 H Lymph # (Auto) 1.5 [place] # (Auto) 0.9 H Eos # (Auto) 0.1 Baso # (Auto) 0.1 Immature Gran % 0.3 Nucleated RBC % 0.0 Immature Gran # 0.03 Nucleated RBCs # 0.00 Immature Plt Fraction 0.0 INR 1.2 PT Patient/Control Mix 12.3 Sodium Potassium Chloride Carbon Dioxide Anion Gap BUN Creatinine GFR Calculation BUN/Creatinine Ratio Glucose Calculated Osmolality Calcium Magnesium Urine Test Negative 03/21/17 01:09 WBC RBC Hgb Hct MCV MCH MCHC RDW Plt Count MPV Neut % (Auto) Lymph % (Auto) [place] % (Auto) Eos % (Auto) Baso % (Auto) Neut # (Auto) Lymph # (Auto) [place] # (Auto) Eos # (Auto) Baso # (Auto) Immature Gran % Nucleated RBC % Immature Gran # Nucleated RBCs # Immature Plt Fraction INR PT Patient/Control Mix Sodium 141 Potassium 3.6 Chloride 102 Carbon Dioxide 30 Anion Gap 12.6 BUN 17 Creatinine 0.90 GFR Calculation 115 BUN/Creatinine Ratio 18.00 Glucose 114 H Calculated Osmolality 283.3 Calcium 8.6 Magnesium 1.8 Urine Test - Diagnostic Findings Procedure: Chest x-ray: image reviewed by me, report reviewed by me (03/21/17: bilateral infiltrate vs pulm edema) - EKG EKG results: interpreted by me EKG shows: sinus rhythm (LBBB, mild tachycardia with HR 100) Quality Measures - VTE Contraindication to Pharmacological VTE Prophylaxis: High Risk of Bleeding Specialty Discharge - Follow Up or Referrals Oscar Temple Thomas, MD, personally performed the services described in this documentation, ascribed by Yodit Mckeon RN in my presence, and it is both accurate and complete .
[2017-03-21] MEDS ORDERED: CARVEDILOL 3.125 MG TABLET PO SCH (10:00)
[2017-03-21] MEDS: LEVOFLOXACIN 750 MG TABLET PO SCH (11:47)
--- NOTE | 2017-03-21 13:56 | Hospitalist Progress Note ---
Assessment and Plan (1) Congestive heart failure Status: Chronic Assessment and plan: Continue Lasix and Aldactone. Left heart cath report reviewed. EF 20-30% Start Aldactone Start RHONDA inhibitor Continue Lasix Start Coreg He will need LifeVest at discharge arrange cardiac MRI Current Visit: Yes Qualifiers: Congestive heart failure type: systolic Congestive heart failure chronicity : acute on chronic Qualified Code(s): I50.23 - Acute on chronic systolic ( congestive) heart failure (2) Hypokalemia Status: Resolved Assessment and plan: Replaced. Potassium 3.6. Current Visit: Yes (3) Sarcoid Status: Chronic Current Visit: Yes Hospitalist: Subjective Interval history: Patient seen and examined. No acute events overnight. Case discussed with nursing staff. Labs reviewed. Cardiac cath report reviewed. Electrophysiology and cardiology notes reviewed. Case discussed with rheumatology. Patient unable to get cardiac MRI here in [place]. It has been scheduled in [place]. She has been started on an RHONDA inhibitor and Coreg. Doses will be titrated as tolerated. She had a fever overnight and was started on Levaquin due to allergy to Keflex. Chest x-ray is questionable for infiltrate versus edema. Her white blood cell count is not remarkably elevated but did increase from admission. Exam - Constitutional Vitals: Period Temp Pulse Resp BP Sys/Panchal Pulse Ox Last 24 Hr 97.4 F-101.1 F 92-108 16-20 109-142/63-91 91-99 Exam: Constitutional System: No distress. No tremulousness. Head: Normocephalic, atraumatic. Ears, Nose and Throat System: No pain or tenderness. No epistaxis or discharge Eyes System: Pupils equal, round, and reactive. Extraocular muscles intact. Neck: Supple, without adenopathy, No jugular venous distention. No thyromegaly, neck mass, or prior surgery apparent. Respiratory System: Chest clear to auscultation. Cardiovascular System: Heart with regular rate and rhythm. No murmur. GI System: Abdomen soft, nontender. Normo active bowel sounds present. Musculoskeletal System: limbs with minimal pedal edema. Full distal pulses. Normal capillary refill. Neurological System: No discernable sensory deficit. No aphasia Psychiatric System: Conversation is rational Results - Labs CBC & BMP: 03/21/17 01:09 03/21/17 01:09 Lab Results: I have reviewed the past 24 hour labs Quality Measures - VTE Contraindication to Pharmacological VTE Prophylaxis: High Risk of Bleeding Specialty Discharge - Follow Up or Referrals
[2017-03-21] MEDS: FUROSEMIDE 40 MG TABLET PO SCH (16:23)
--- NOTE | 2017-03-21 17:26 | Sleep Medicine Consult ---
Assessment and Plan (1) Unspecified sleep apnea Status: Acute Assessment and plan: Her symptoms certainly are concerning for sleep apnea and she does need sleep evaluation. We will start with home sleep testing tonight and if negative, would recommend an lab evaluation. Thank you for this consult and the opportunity to participate in her care. Current Visit: Yes (2) Cardiomyopathy Status: Acute Assessment and plan: Untreated sleep apnea certainly can be an exacerbating factor towards congestive heart failure and cardiomyopathy. Treating sleep apnea in patients with systolic dysfunction could potentially improve ejection fraction and improve management of heart failure. Current Visit: Yes History of Present Illness Chief complaint: Sleep apnea History of present illness: Ms. Mosley is a 41 year old female admitted with shortness of breath and found to have a severe cardiomyopathy with an EF of 30%. There is a concern that this is related to sarcoidosis. She had been diagnosed with sarcoidosis many years ago and apparently been treated with prednisone for period of time. Sleep medicine was consulted for evaluation of possible sleep apnea. She does have a history of snoring and will awaken from sleep short of breath. Her grandmother noted that she did have pauses in her snoring concerning for sleep apnea. She does have symptoms of fatigue and under refreshing sleep. She does not have symptoms of nocturia. Home Medications Medication Instructions Recorded Confirmed Type Albuterol Neb [Proventil Neb] 1.25 mg RESP TX Q6H PRN 03/19/17 03/19/17 History Allergies Allergy/AdvReac Type Severity Reaction Status Date / Time cephalexin [From Keflex] Allergy Mild Unknown/Unable Verified 03/19/17 00:47 to obtain Review of systems: Otherwise unremarkable from a sleep medicine standpoint. Exam (Pulmonay) H&P - Constitutional Vitals: Period Temp Pulse Resp BP Sys/Panchal Pulse Ox Last 24 Hr 97.4 F-101.1 F 92-108 16-20 88-142/52-89 90-99 Exam: She is alert and responsive in no acute distress. Pupils equal round reactive to light and accommodation. Extraocular movements intact. Oropharynx with a class III Mallampati exam. Neck supple without adenopathy or thyromegaly. No supraclavicular adenopathy is noted. Chest with good air movement and no focal wheeze rhonchi. Cardiac exam reveals regular rhythm without murmur or gallop. Abdomen soft nontender without palpable hepatosplenomegaly or mass. Extremities are without clubbing, cyanosis, or edema. Neurologically, she is grossly intact. She moves all extremities with good strength. Medical,Surgical,& Family Hx - Medical History Cardio: History of: CHF, Cardiovascular Problems (cardiomyopathy; DVT L leg age 16) No history of: Cardiac Dysrhythmia, Cerebrovascular Disease, Hypertension, AL Psychological: History of: Anxiety Disorders No history of: Depression, Psychiatric/Substance Abuse Tx Neurology: History of: Cerebrovascular Accident (as a child- no deficits), TIA ( 28 years ago) No history of: Brain Aneurysm, Seizures HEENT: No history of: HEENT Problems Endocrine: No history of: Endocrine Problems Rheumatology: History of;: Rheumatological Problems (Sarcoidosis) Respiratory: History of: Pulmonary Hypertension (dx this hospital visit), Respiratory Problems No history of: Obstructive Sleep Apnea Renal: No history of: Renal Problems Genitourinary: No history of: Problems Gastrointestinal: History of: GI Problems (occasional constipation) Musculoskeletal: History of: Back/Neck Problems (chronic pain), Herniated Disk, 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) Hematology: History of: Bleeding Problems (RH NEGATIVE), Clotting Problems (DVT to left leg) Reproductive: History of: Ovarian Cysts, Reproductive Problems ("frozen ovary") Other: History of: Miscellaneous Medical Problems (Sarcoidosis) - Surgical History Thoracic Surgeries: Patient denies;: Lobectomy Neurologic Surgeries: Patient denies: Brain Aneurysm, Neurologic Surgery HEENT Surgeries: Surgical HX of: Tonsilectomy & Adenoidectomy Abdominal Surgeries: Patient denies: Abdominal Surgery Reproductive Surgeries: Surgical HX of;: Gynecologic Surgery (Ovary removed) Patient denies;: Genitourinary Surgery Orthopedic Surgeries: Surgical HX of;: Orthopedic Surgery (left ankle sx left ankle pin) - Family History Family History: Reports;: Family Diabetes (mother), Family Heart Disease (mother ), Family Hypertension (mother and father), Family Stroke (mother) - Social History Smoking Status: Never smoker Frequency of Alcohol Use: None Type of Drug Use: None Results - Labs CBC & BMP: 03/21/17 01:09 03/21/17 01:09 Lab Results: I have reviewed the past 24 hour labs Quality Measures - VTE Contraindication to Pharmacological VTE Prophylaxis: High Risk of Bleeding Specialty Discharge - Follow Up or Referrals
[2017-03-21] MEDS: LISINOPRIL 2.5 MG TABLET PO SCH (20:51)
[2017-03-22 05:48] LABS: Calcium 8.5 MG/DL (8.5-10.1); Osmolality,Calculated 275.7 MOS/KG (273-304); Potassium 3.5 MMOL/L (3.5-5.1)
[2017-03-22] MEDS: ENOXAPARIN 40 MG/0.4 ML SYRINGE SUBCUT SCH (06:23)
--- NOTE | 2017-03-22 09:29 | Cardiology Progress Note ---
Mike Temple Vanessa RN, am scribing for, and in the presence of, Nish Moore MD 09:22. Assessment and Plan - Time spent with patient Time spent with patient: Greater than 30 minutes (1) Congestive heart failure Status: Chronic Assessment and plan: SEE PLAN OF CARE LISTED BELOW. Current Visit: Yes Qualifiers: Congestive heart failure type: systolic Congestive heart failure chronicity : acute on chronic Qualified Code(s): I50.23 - Acute on chronic systolic ( congestive) heart failure (2) Cardiomyopathy Status: Acute Assessment and plan: SEE PLAN OF CARE LISTED BELOW. Current Visit: Yes (3) Sarcoid Status: Chronic Assessment and plan: SEE PLAN OF CARE LISTED BELOW. Current Visit: Yes Cardiology - PN: Subj Interval history: Process Safety Management Engineer: Dr. Sal (new) SUMMARY: Mrs. Mosley, 41 year old WF, PMHx sarcoidosis (biopsy confirmed), remote DVT and TIA, morbid obesity. Admitted to [facility] on 03/19 with acute dyspnea, pulm edema, and found to be in new onset systolic CHF and LBBB of unknown chronicity. Echocardiogram with severely reduced LVEF 30%, moderate diastolic dysfunction, moderate TR and pulm HTN (PAP 55mmHg). CAD ruled out per [facility] on 03/[address] Butler with cath showing no significant obstructive disease, minimal luminal irregularities only, LVEDP 36. Has been evaluated by Dr. Sal for SHOE CLEANER-D placement. Upon discharge, will need cardiac MRI (Dr. Blayne Cline, [place]) to evaluate for sarcoid cardiomyopathy. Being evaluated for LifeVest at discharge with medical management to ensue. Since admission, patient has been started on aggressive IV diuresis with good response. March: Sleeping soundly this morning. No acute respiratory distress. Afebrile overnight. No chest pain, no dypsnea. Nonproductive cough. Reported weakness and dizziness yesterday evening. No orthostasis per VS check. Beta seth was not given. LifeVest placed last PM. HST last night after evaluation by Dr. Chinchilla. Results pending. Arrangements being finalized for cardiac MRI in [place]. SBP 95-110 mmHg. Tele: SR, HR 80s, LBBB. ROS: -no dyspnea. nonproductive cough, no wheeze -no chest pain, palpitations, or orthopnea -no abd pain, N/V. appetite fair Labs reviewed: Sodium 138, chloride 100 Potassium 3.5 Creatinine 0.6 Glucose 108 Cardiology addendum. Patient examined chart reviewed and discussed with nurse. She had problems with low blood pressure last night and she was symptomatic. Blood pressure 110/70 in the right arm by me now. Decreased breath sounds but clear. Regular rhythm no gallop. Plan Decrease Lasix 40 mg daily Decrease spironolactone 25 mg daily Decrease lisinopril 2.5 mg daily Carvedilol 3.125 mg twice daily Ambulate and monitor LifeVest 40 mEq KCl BMP in a.m. Anticipate discharge tomorrow Exam (Progress Note) - Constitutional Vitals: Period Temp Pulse Resp BP Sys/Panchal Pulse Ox Last 24 Hr 97.4 F-99.7 F 82-100 12-20 88-125/52-89 90-98 Exam: General appearance: no acute distress, morbidly obese. Pleasant, cooperative. - Head Head exam: Present: normal inspection. Absent: contusion, hematoma. No periorbital swelling. - Eye Eye exam: Absent: periorbital swelling, scleral icterus Pupils: Absent: dilated - ENT ENT exam: Present: normal external ear exam - Neck Neck exam: No tenderness. Unable to assess for JVD due to body habitus - Respiratory Respiratory exam: Present: clear to auscultation bilaterally. Absent: chest wall tenderness, rhonchi, wheezes. Not requiring supplemental oxygen. - Cardiovascular Cardiovascular exam: Present: regular rate and rhythm, systolic murmur. Absent : Bradycardia, tachycardia - GI/Abdominal GI/Abdominal exam: Present: normal bowel sounds, soft, obese. Absent: distended , firm, tenderness - Extremities Exam Extremities exam: Present: normal inspection, normal capillary refill, edema (1+ ) BLEs - Back Exam Back exam: Present: normal inspection. No tenderness - Neurological Exam Neurological exam: Present: alert, oriented X3. Grossly intact. No resting tremor. - Psychiatric Psychiatric exam: Present: normal affect, normal mood. Absent: anxious, depressed Result/EKG - Labs CBC & BMP: 03/21/17 01:09 03/22/17 04:11 Lab Results: I have reviewed the past 24 hour labs Labs: Laboratory Results - last 24 hr 03/22/17 04:11 Sodium 138 Potassium 3.5 Chloride 100 Carbon Dioxide 28 Anion Gap 13.5 BUN 12 Creatinine 0.60 GFR Calculation 164 BUN/Creatinine Ratio 20.00 Glucose 108 H Calculated Osmolality 275.7 Calcium 8.5 - EKG EKG results: interpreted by me, no acute changes EKG shows: sinus rhythm Quality Measures - VTE Contraindication to Pharmacological VTE Prophylaxis: High Risk of Bleeding Specialty Discharge - Follow Up or Referrals Follow up with: Igor Sal MD [Physician] - 2 Weeks (Will need follow up appointment in EP clinic w/ Dr. Sal after she has had cardiac MRI in [place].) I, Nish Moore MD, personally performed the services described in this documentation, ascribed by Yodit Mckeon RN in my presence, and it is both accurate and complete .
[2017-03-22] MEDS: FUROSEMIDE 40 MG TABLET PO SCH (09:42)
[2017-03-22] MEDS: LISINOPRIL 2.5 MG TABLET PO SCH (09:42)
[2017-03-22] MEDS: DOCUSATE SODIUM 100 MG CAPSULE PO SCH ×2 (09:43→21:36)
[2017-03-22] MEDS: PANTOPRAZOLE 40 MG TABLET PO SCH (09:43)
[2017-03-22] MEDS: POTASSIUM CHLORIDE 20 MEQ TABLET PO SCH (09:43)
[2017-03-22] MEDS: SPIRONOLACTONE 25 MG TABLET PO SCH (09:44)
[2017-03-22] MEDS: CARVEDILOL 3.125 MG TABLET PO SCH ×2 (09:45→21:36)
[2017-03-22] MEDS: LEVOFLOXACIN 750 MG TABLET PO SCH (09:47)
--- NOTE | 2017-03-22 10:34 | Hospitalist Progress Note ---
Assessment and Plan (1) Congestive heart failure Status: Chronic Assessment and plan: Continue Lasix and Aldactone. Left heart cath report reviewed. EF 20-30% Continue Aldactone Continue RHONDA inhibitor Continue Lasix Start Coreg He will need LifeVest at discharge arrange cardiac MRI in [place] Current Visit: Yes Qualifiers: Congestive heart failure type: systolic Congestive heart failure chronicity : acute on chronic Qualified Code(s): I50.23 - Acute on chronic systolic ( congestive) heart failure (2) Hypokalemia Status: Resolved Assessment and plan: Replaced. Potassium 3.6. Current Visit: Yes (3) Sarcoid Status: Chronic Assessment and plan: Follow-up as an outpatient with rheumatology Cardiac MRI set up for [place] Current Visit: Yes Hospitalist: Subjective Interval history: Patient seen and examined. No acute events overnight. Case discussed with nursing staff. Labs reviewed. Case discussed with cardiology. Dr. Moore and I saw her together. She reports feeling woozy yesterday. She was found to have orthostatic hypotension and her evening dose of Coreg was held. We are making medication adjustments today by decreasing her Lasix and Aldactone as well as her lisinopril. Cardiology and I both feel that beta-blockers are important for her and if urged her to continue her Coreg at the lowest dose. She is wearing her LifeVest and had a sleep study done last night. She will need close outpatient follow-up. Anticipate discharge home tomorrow. Overall she reports improvement in her symptoms of shortness of breath. She has been afebrile. Exam - Constitutional Vitals: Period Temp Pulse Resp BP Sys/Panchal Pulse Ox Last 24 Hr 97.4 F-99.7 F 82-100 12-20 88-125/52-89 90-98 Exam: Constitutional System: No distress. No tremulousness. Head: Normocephalic, atraumatic. Ears, Nose and Throat System: No pain or tenderness. No epistaxis or discharge Eyes System: Pupils equal, round, and reactive. Extraocular muscles intact. Neck: Supple, without adenopathy, No jugular venous distention. No thyromegaly, neck mass, or prior surgery apparent. Respiratory System: Chest clear to auscultation. Cardiovascular System: Heart with regular rate and rhythm. No murmur. GI System: Abdomen soft, nontender. Normo active bowel sounds present. Musculoskeletal System: limbs with minimal pedal edema. Full distal pulses. Normal capillary refill. Neurological System: No discernable sensory deficit. No aphasia Psychiatric System: Conversation is rational Results - Labs CBC & BMP: 03/21/17 01:09 03/22/17 04:11 Lab Results: I have reviewed the past 24 hour labs Quality Measures - VTE Contraindication to Pharmacological VTE Prophylaxis: High Risk of Bleeding Specialty Discharge - Follow Up or Referrals Follow up with: Igor Sal MD [Physician] - 2 Weeks (Will need follow up appointment in EP clinic w/ Dr. Sal after she has had cardiac MRI in [place].)
--- NOTE | 2017-03-22 12:58 | Order Completion Report ---
See report scanned to EMR
--- NOTE | 2017-03-22 17:31 | Sleep Medicine Progress Note ---
Assessment and Plan (1) Unspecified sleep apnea Status: Acute Assessment and plan: Patient did indeed have severe obstructive sleep apnea and will be started on auto titration CPAP tonight. All findings regarding her sleep study were reviewed with her to her understanding. Current Visit: Yes (2) Cardiomyopathy Status: Acute Current Visit: Yes Sleep Medicine Subjective Interval history: Patient did undergo home sleep testing last night and was found to have severe obstructive sleep apnea with a respiratory event index of 46.3 with O2 desaturation to lows of 69%. She spent over 5 hours of her sleep with O2 sats of less than 90%. We will start her on auto titration CPAP tonight from 5-20 cm in follow-up her response daily. We will monitor mask fit and any issues while hospitalized. We will get downloads from her CPAP device of results and compliance. Follow-up will be scheduled in sleep clinic after discharge to monitor response. Exam (Progress Note) - Constitutional Vitals: Period Temp Pulse Resp BP Sys/Panchal Pulse Ox Last 24 Hr 96.9 F-99.7 F 82-106 12-20 85-120/52-74 91-97 Results - Labs CBC & BMP: 03/21/17 01:09 03/22/17 04:11 Lab Results: I have reviewed the past 24 hour labs Specialty Discharge - Follow Up or Referrals Follow up with: Igor Sal MD [Physician] - 04/04/17 7:40 am (Will need follow up appointment in EP clinic w/ Dr. Sal after she has had cardiac MRI in [place].)
[2017-03-22] MEDS: ZALEPLON 5 MG CAPSULE PO PRN (21:36)
[2017-03-23] MEDS: SPIRONOLACTONE 25 MG TABLET PO SCH ×2 (02:21→10:02)
[2017-03-23] MEDS: LISINOPRIL 2.5 MG TABLET PO SCH ×2 (02:21→10:02)
[2017-03-23 06:13] LABS: Osmolality,Calculated 280.4 MOS/KG (273-304); Potassium 3.8 MMOL/L (3.5-5.1)
[2017-03-23] MEDS: ENOXAPARIN 40 MG/0.4 ML SYRINGE SUBCUT SCH (06:31)
--- NOTE | 2017-03-23 08:35 | XRay Report ---
XR chest 2V Date: 03/23/2017 4:00 AM History: Pneumonia, CHF Comparison: 03/21/2017 Technique: PA and lateral chest Findings: The heart is enlarged with less prominent vasculature. Reduced parenchymal findings in the right lung and left lung base. Progressive parenchymal findings in the left midlung zone. Degenerative changes are noted. Impression: Reduced infiltration/edema in the right lung and left lung base. Progressive findings in the left midlung zone. PROCEDURE INTERPRETED AT [facility] DEPARTMENT OF RADIOLOGY Final Report Signed by: Dr. Evelyne Osorio
[2017-03-23] MEDS ORDERED: FUROSEMIDE 40 MG TABLET PO SCH (09:00)
[2017-03-23] MEDS: LEVOFLOXACIN 750 MG TABLET PO SCH (10:02)
[2017-03-23] MEDS: POTASSIUM CHLORIDE 20 MEQ TABLET PO SCH (10:02)
[2017-03-23] MEDS: PANTOPRAZOLE 40 MG TABLET PO SCH (10:03)
[2017-03-23] MEDS: CARVEDILOL 3.125 MG TABLET PO SCH (10:03)
[2017-03-23] MEDS: DOCUSATE SODIUM 100 MG CAPSULE PO SCH (10:03)
--- NOTE | 2017-03-23 10:39 | Cardiology Progress Note ---
Assessment and Plan (1) Congestive heart failure Status: Chronic Assessment and plan: SEE PLAN OF CARE LISTED BELOW. Current Visit: Yes Qualifiers: Congestive heart failure type: systolic Congestive heart failure chronicity : acute on chronic Qualified Code(s): I50.23 - Acute on chronic systolic ( congestive) heart failure (2) Cardiomyopathy Status: Acute Assessment and plan: SEE PLAN OF CARE LISTED BELOW. Current Visit: Yes (3) Sarcoid Status: Chronic Assessment and plan: SEE PLAN OF CARE LISTED BELOW. Current Visit: Yes Cardiology - PN: Subj Interval history: Cardiology note patient feels better today. Telemetry shows steady sinus rhythm. Blood pressure 106/70 right arm by me. Regular rhythm no murmur or gallop Chest is clear. Abdomen benign. No leg edema. 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 Lasix 40 mg daily Spironolactone 25 mg daily Lisinopril 2.5 mg daily Carvedilol 3.125 mg twice daily LifeVest in place KCl 20 mEq daily Cardiac MRI scheduled in [place] March 29 Office follow-up with Dr. Sal scheduled for April 04 Exam (Progress Note) - Constitutional Vitals: Period Temp Pulse Resp BP Sys/Panchal Pulse Ox Last 24 Hr 96.9 F-98.2 F 82-106 16-20 85-120/52-89 92-96 Result/EKG - Labs CBC & BMP: 03/21/17 01:09 03/23/17 03:54 Labs: Laboratory Results - last 24 hr 03/20/17 03/23/17 04:25 03:54 Sodium 140 Potassium 3.8 Chloride 102 Carbon Dioxide 31 Anion Gap 10.8 BUN 18 Creatinine 0.80 GFR Calculation 132 BUN/Creatinine Ratio 22.00 H Glucose 101 Calculated Osmolality 280.4 Calcium 9.0 Transferrin 218 Quality Measures - VTE Contraindication to Pharmacological VTE Prophylaxis: High Risk of Bleeding Specialty Discharge - Follow Up or Referrals Follow up with: Igor Sal MD [Physician] - 04/04/17 7:40 am (Will need follow up appointment in EP clinic w/ Dr. Sal after she has had cardiac MRI in [place].)
[2017-03-23 11:39] VITALS: BP 106/71
--- NOTE | 2017-03-23 11:46 | Discharge Summary ---
Hospital Course - Hospital Course Hospital Course: 41-year-old female admitted to the hospital with shortness of breath and acute exacerbation of congestive heart failure. She was found to have an ejection fraction of 20-30%. She underwent left heart cath that showed patent coronary arteries. This is believed to be related to her history of sarcoid. She was seen in consultation by Dr. Chinchilla for evaluation of obstructive sleep apnea. She has been set up for follow-up as an outpatient with Dr. Chinchilla and Dr. Arechiga as well as outpatient MRI in [place] for further workup of her sarcoid cardiomyopathy. During the course of hospitalization. She developed a low-grade fever and was started on Levaquin. This was for presumptive pneumonia as evidenced by her chest x-ray. I do believe the patient has clinical pneumonia. I believe the patient had atelectasis from immobility during hospital stay. Nonetheless she was given a prescription for Levaquin to finish out a 7 day course. 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 Lasix 40 mg daily Spironolactone 25 mg daily Lisinopril 2.5 mg daily Carvedilol 3.125 mg twice daily LifeVest in place KCl 20 mEq daily Cardiac MRI scheduled in [place] March 29 Office follow-up with Dr. Sal scheduled for April 04 - Time spent with patient Time with patient DS: Greater than 30 minutes (Total discharge time for this patient, including [id number] time, clinical documentation, medication reconciliation, and discharge planning was 44 minutes.) Diagnosis - Discharge Diagnosis (1) Congestive heart failure Status: Chronic (2) Hypokalemia Status: Resolved (3) Sarcoid Status: Chronic Specialty Discharge - Follow Up or Referrals Follow up with: Igor Sal MD [Physician] - 04/04/17 7:40 am (Will need follow up appointment in EP clinic w/ Dr. Sal after she has had cardiac MRI in [place].) Discharge Plan - Discharge Data Disposition: Disch To Home/Self Care Condition at Discharge: Stable Discharge Diet: advance to your usual diet Activity: increase activity as tolerated Hygiene: no restrictions Weight Bearing at Discharge: full weight bearing Driving: no restrictions Contact your physician if you experience:: fever over 101, Shortness of breath, Bleeding - Discharge Medications New Furosemide Tab [Lasix Tab] 40 mg PO DAILY #30 tablet guaiFENesin/DM ER 600-30 [Mucinex Dm 600-30 MG] 1 tablet PO BID PRN tablet PRN Reason: Congestion Levofloxacin Tab [Levaquin Tab] 750 mg PO DAILY #7 tablet Potassium Chloride Cap/Tab [K Dur] 40 meq PO DAILY #30 tablet Spironolactone [Aldactone] 25 mg PO DAILY #30 tablet Carvedilol [Coreg] 3.125 mg PO BID #60 tablet Lisinopril [Prinivil] 2.5 mg PO DAILY #30 tablet Continue Albuterol Neb [Proventil Neb] 1.25 mg RESP TX Q6H PRN PRN Reason: Shortness Of Breath/Wheezing - Follow Up or Referral Follow Up: Igor Sal MD [Physician] - 04/04/17 7:40 am (Will need follow up appointment in EP clinic w/ Dr. Sal after she has had cardiac MRI in [place].) - Forms/Instructions Instructions: Heart Failure (DC), Sarcoidosis (ED) Exam - Constitutional Vitals: Period Temp Pulse Resp BP Sys/Panchal Pulse Ox Last 24 Hr 96.9 F-98.2 F 82-106 16-20 85-120/52-89 92-97 Discharge Results Procedures and tests throughout hospitalization: Pending Orders 03/21/17 01:09 Blood Culture Stat Labs on day of discharge: Labs from last 24 hours 03/23/17 03:54 Sodium 140 Potassium 3.8 Chloride 102 Carbon Dioxide 31 Anion Gap 10.8 BUN 18 Creatinine 0.80 GFR Calculation 132 BUN/Creatinine Ratio 22.00 H Glucose 101 Calculated Osmolality 280.4 Calcium 9.0 Preliminary micro results at discharge 03/21/17 01:09 Blood Culture - Preliminary Blood No growth at 1 day 03/21/17 01:09 Blood Culture - Preliminary Blood No growth at 1 day DS: Provider Date of admission: 03/19/17 05:20 Primary care physician: . No PCP Attending physician on admission: Nuria Vale MD Consults: 03/19/17 06:58 Consult to Case Mgmt/Social Srvs [CONS] Routine Reason for Case Mgmt/Social Srvs: Discharge Planning Consult Comment: please make outpt appts for patient Consult to Physician [CONS] Routine Comment: CHF new onset Consulting Provider: Igor Sal 03/20/17 11:04 Consult to Physician [CONS] Routine Comment: Sarcoidosis Consulting Provider: Bibi Aguilar Consult to Specialist Group: Rheumatology Person Notified: Maritza Date Notified: 03/20/17 Time Notified: 12:07 03/21/17 08:08 Consult to Case Mgmt/Social Srvs [CONS] Routine Reason for Case Mgmt/Social Srvs: Discharge Planning Consult Comment: Set up for LifeVest. Refer to Dr. Blayne Cline ([place] ) for card MRI 03/21/17 08:43 Consult to Sleep Center [CONS] Routine Reason for Sleep Center: Sleep Center Physician Consult Comment: morbid obesity, sarcoid, sCHF, r/o sleep disorder Discharging clinician: Nuria Vale MD Expected date of discharge: 03/23/17
--- NOTE | 2017-03-23 12:36 | Sleep Medicine Progress Note ---
Assessment and Plan (1) Unspecified sleep apnea Status: Acute Assessment and plan: This patient does have severe obstructive sleep apnea with severe O2 desaturation during sleep. She needs formal titration in the sleep lab. She had a tough night with her first experience with auto titration CPAP. She is very reticent about coming in for formal titration. We will try to get her in for a Pap nap to help her acclimate to CPAP. I have spent much time talking about the severity of her obstructive sleep apnea and the potential benefit to her from a cardiac standpoint, given her severe cardiomyopathy. Current Visit: Yes (2) Cardiomyopathy Status: Acute Current Visit: Yes Sleep Medicine Subjective Interval history: Patient was tried on auto titration CPAP last night. She initially spent over 2 hours on CPAP but states that she did not sleep. Her AHI with the recording time was over 20. She did not tolerate CPAP well. I told her that she needs to come in for CPAP titration given the severity of her sleep apnea and the potential benefit that she can gain from CPAP. She is very against this at this point. She was agreeable to coming in for a Pap nap and we will set this up. Exam (Progress Note) - Constitutional Vitals: Period Temp Pulse Resp BP Sys/Panchal Pulse Ox Last 24 Hr 97.0 F-98.2 F 82-99 16-20 85-115/52-89 92-97 Exam: Patient alert and responsive and answers questions appropriately. Results - Labs CBC & BMP: 03/21/17 01:09 03/23/17 03:54 Lab Results: I have reviewed the past 24 hour labs Specialty Discharge - Follow Up or Referrals Follow up with: Igor Sal MD [Physician] - 04/04/17 7:40 am (Will need follow up appointment in EP clinic w/ Dr. Sal after she has had cardiac MRI in [place].)
--- NOTE | 2017-03-27 15:05 | Physician Query Form ---
CLICK EDIT DOCUMENT TO SELECT QUERY ANSWER --> OK --> SIGN Soco Cartwright RN Clinical [employer] W) [phone] (f) [phone] [email or web address]: Make your selection(s) from the choices in EACH section by typing an "x" and enter comments in the comment section. Please use your independent medical judgment in providing your response. This request does not imply that any particular answer is desired or expected. CLINICAL INDICATORS: (Providers should not edit this section) Based on documentation of "She developed a low-grade fever and was started on Levaquin. This was for presumptive pneumonia as evidenced by her chest x-ray. I do believe the patient has clinical pneumonia. I believe the patient had atelectasis from immobility during hospital stay. Nonetheless she was given a prescription for Levaquin to finish out a 7 day course". Diagnosis: Pneumonia Please clarify the following: (X ) The above diagnosis was monitored, evaluated, and/or treated and is a confirmed diagnosis ( ) The above diagnosis was ruled out ( ) Other, please specify: ( ) Clinically unable to determine COMMENTS: PLEASE ALSO DOCUMENT RESPONSE IN PROGRESS NOTES AND/OR DISCHARGE SUMMARY Use of terms such as suspected, likely, or probable (associated with a specific diagnosis that is being evaluated, monitored, or treated as if it exists) are acceptable and can be restated in the discharge summary if not ruled out. MTDD
== END 2017-03-23 01:11 | disposition home or self-care (01) | DRG 286 ==
LOC: N.ED 00:38 → N.TELES 05:20
PROVIDERS: ADMIT Family Medicine; ATTEND Family Medicine
PROC: CLCCHCL (ICD-10-PCS; 2017-03-20 12:15)

== ENCOUNTER 2017-11-10 15:57 | Observation (INO) ==
[2017-11-10 17:19] LABS: Basophils # 0.1 10*3/uL (0.0-0.2); Basophils % 0.7 % (0.0-0.8); Eosinophils # 0.1 10*3/uL (0.0-0.87); Eosinophils % 1.8 % (0.00-10.9); Hematocrit 39.7 VOL% (35.7-47.0); Hemoglobin 14.2 GM/DL (12.0-16.0); Immature Granulocytes % 0.3 %; Immature Granulocytes Absolute 0.02 #; Lymphocytes # 1.7 10*3/uL (1.4-4.0); Lymphocytes % 23.4 % (21.3-54.2); Mean Corpuscular HGB Conc 35.8 GM/DL (32-36); Mean Corpuscular Hemoglobin 33 PG (27-34); Mean Corpuscular Volume 91.9 FL (87-102); Mean Platelet Volume 11.8 FL (9.6-12.0); Monocytes # 0.7 10*3/uL (0.11-0.8); Monocytes % 9.1 % (1.7-12.7); Neutrophils # 4.8 10*3/uL (1.4-7.4); Neutrophils % 64.7 % (38.7-73.9); Platelet Count 153 T/CUMM (130-400); Red Blood Count 4.32 MC/CUMM (3.8-5.5); Red Cell Distribution Width 12.4 % (9.3-17.3); White Blood Count 7.3 T/CUMM (4-12)
[2017-11-10 17:45] LABS: Alanine Aminotransferase 47 U/L (13-56); Albumin 3.6 G/DL (3.4-5.0); Alkaline Phosphatase 57 U/L (45-117); Aspartate Amino Transferase 39 U/L (0-37); Blood Urea Nitrogen 20 MG/DL (7-18); Calcium 8.9 MG/DL (8.5-10.1); Glucose 91 MG/DL (74-106); Osmolality,Calculated 277.7 MOS/KG (273-304); Potassium 3.9 MMOL/L (3.5-5.1); Sodium 138 MMOL/L (136-145); Total Protein 7.7 G/DL (6.4-8.3)
[2017-11-10] MEDS ORDERED: ONDANSETRON 4 MG/2 ML VIAL IV PRN (17:48)
[2017-11-10] MEDS ORDERED: ZALEPLON 5 MG CAPSULE PO PRN (17:48)
[2017-11-10] MEDS ORDERED: MAGNESIUM SULF RIDER 4 GM in PREMIX 1 EACH IV PRN (17:48)
[2017-11-10] MEDS ORDERED: MAGNESIUM SULF RIDER 2 GM in PREMIX 1 EACH IV PRN (17:48)
[2017-11-10] MEDS ORDERED: SODIUM CHLORIDE 0.45% 1,000 ML IV SCH (18:00)
[2017-11-10 18:50] VITALS: BP 115/70
[2017-11-10] MEDS ORDERED: ENOXAPARIN 40 MG/0.4 ML SYRINGE SUBCUT SCH (21:00)
[2017-11-10] MEDS ORDERED: CARVEDILOL 3.125 MG TABLET PO SCH (21:00)
[2017-11-11] MEDS ORDERED: SPIRONOLACTONE 25 MG TABLET PO SCH (09:00)
[2017-11-11] MEDS ORDERED: LISINOPRIL 5 MG TABLET PO SCH (09:00)
[2017-11-11] MEDS ORDERED: POTASSIUM CHLORIDE 20 MEQ TABLET PO SCH (09:00)
[2017-11-11] MEDS ORDERED: FUROSEMIDE 40 MG TABLET PO SCH (09:00)
== END 2017-11-10 22:21 | disposition home or self-care (01) ==
LOC: N.EDINP 15:57 → N.ED 15:57 → N.TELEN 18:18
PROVIDERS: ADMIT Internal Medicine Cardiovascular Disease; ATTEND Internal Medicine Cardiovascular Disease

== ENCOUNTER 2018-05-01 19:35 | Inpatient (IN) ==
[2018-05-01] MEDS ORDERED: ASPIRIN 325 MG TABLET PO STA (20:14)
[2018-05-01 20:59] LABS: Basophils % 0.5 % (0.0-0.8); Eosinophils # 0.1 10*3/uL (0.0-0.87); Eosinophils % 0.9 % (0.00-10.9); Hematocrit 40.9 VOL% (35.7-47.0); Hemoglobin 13.6 GM/DL (12.0-16.0); Immature Granulocytes % 0.2 %; Immature Granulocytes Absolute 0.02 #; Lymphocytes # 2.3 10*3/uL (1.4-4.0); Lymphocytes % 28.7 % (21.3-54.2); Mean Corpuscular HGB Conc 33.3 GM/DL (32-36); Mean Corpuscular Hemoglobin 31 PG (27-34); Mean Corpuscular Volume 93.6 FL (87-102); Mean Platelet Volume 12.3 FL (9.6-12.0); Monocytes # 0.6 10*3/uL (0.11-0.8); Monocytes % 7.7 % (1.7-12.7); Neutrophils # 5.1 10*3/uL (1.4-7.4); Platelet Count 144 T/CUMM (130-400); Red Blood Count 4.37 MC/CUMM (3.8-5.5); Red Cell Distribution Width 12.2 % (9.3-17.3); White Blood Count 8.2 T/CUMM (4-12)
[2018-05-01] MEDS: LORazepam 2 MG/1 ML VIAL IV STA (21:00)
[2018-05-01 21:23] LABS: Albumin 4.2 G/DL (3.4-5.0); Bilirubin,Total 0.4 MG/DL (0.2-1.0); Calcium 9.2 MG/DL (8.5-10.1); Osmolality,Calculated 280.4 MOS/KG (273-304); Potassium 3.7 MMOL/L (3.5-5.1)
[2018-05-01] MEDS ORDERED: ONDANSETRON 4 MG/2 ML VIAL IV PRN (21:50)
[2018-05-01] MEDS ORDERED: AMIODARONE INJ 150 MG in DEXTROSE 5% 100 ML IV ONE (21:50)
[2018-05-01] MEDS ORDERED: AMIODARONE INJ 450 MG in DEXTROSE 5% 241 ML IV SCH (22:00)
[2018-05-01] MEDS ORDERED: POTASSIUM CHLORIDE 20 MEQ TABLET PO PRN (22:56)
[2018-05-01] MEDS ORDERED: BISACODYL 5 MG TABLET PO PRN (22:56)
[2018-05-01] MEDS ORDERED: PROMETHAZINE 25 MG TABLET PO PRN (22:56)
[2018-05-01] MEDS ORDERED: traZODone 50 MG TABLET PO PRN (22:56)
[2018-05-01] MEDS ORDERED: guaiFENesin/DM ER 600-30 MG TABLET PO PRN (22:56)
[2018-05-01] MEDS ORDERED: LACTULOSE 20 GM/30 ML UDCUP PO PRN (22:56)
[2018-05-01] MEDS ORDERED: DOCUSATE SODIUM 100 MG CAPSULE PO PRN (22:56)
[2018-05-01] MEDS ORDERED: diphenhydrAMINE CAP 25 MG CAPSULE PO PRN (22:56)
[2018-05-02] MEDS: LORazepam 2 MG/1 ML VIAL IV STA (01:36)
[2018-05-02 02:41] VITALS: BP 134/85
[2018-05-02 04:36] LABS: Osmolality,Calculated 282.3 MOS/KG (273-304); Potassium 3.5 MMOL/L (3.5-5.1)
[2018-05-02] MEDS: AMIODARONE INJ 450 MG in DEXTROSE 5% 241 ML IV SCH ×2 (05:08→08:55)
[2018-05-02] MEDS: CARVEDILOL 6.25 MG TABLET PO SCH ×2 (08:53→16:50)
[2018-05-02] MEDS: SACUBITRIL/VALSARTAN 49-51 MG TABLET PO SCH ×2 (08:54→21:30)
[2018-05-02] MEDS ORDERED: INFLUENZA VIRUS VACCINE 0.5 ML SYRINGE IM ONE (09:00)
[2018-05-02] MEDS ORDERED: FUROSEMIDE 40 MG TABLET PO SCH (09:00)
[2018-05-02] MEDS ORDERED: SPIRONOLACTONE 25 MG TABLET PO SCH (09:00)
[2018-05-02] MEDS ORDERED: POTASSIUM CHLORIDE 20 MEQ TABLET PO SCH (09:00)
[2018-05-03] MEDS: AMIODARONE INJ 450 MG in DEXTROSE 5% 241 ML IV SCH (00:20)
[2018-05-03 05:26] LABS: Basophils # 0.1 10*3/uL (0.0-0.2); Basophils % 0.5 % (0.0-0.8); Eosinophils # 0.1 10*3/uL (0.0-0.87); Eosinophils % 1.1 % (0.00-10.9); Hematocrit 40.9 VOL% (35.7-47.0); Hemoglobin 13.7 GM/DL (12.0-16.0); Immature Granulocytes % 0.3 %; Immature Granulocytes Absolute 0.03 #; Lymphocytes # 2.5 10*3/uL (1.4-4.0); Lymphocytes % 26.6 % (21.3-54.2); Mean Corpuscular HGB Conc 33.5 GM/DL (32-36); Mean Corpuscular Hemoglobin 32 PG (27-34); Mean Corpuscular Volume 94.9 FL (87-102); Mean Platelet Volume 12.6 FL (9.6-12.0); Monocytes # 0.7 10*3/uL (0.11-0.8); Monocytes % 7.9 % (1.7-12.7); Neutrophils # 5.8 10*3/uL (1.4-7.4); Neutrophils % 63.6 % (38.7-73.9); Platelet Count 139 T/CUMM (130-400); Red Blood Count 4.31 MC/CUMM (3.8-5.5); Red Cell Distribution Width 12.1 % (9.3-17.3); White Blood Count 9.2 T/CUMM (4-12)
[2018-05-03 05:35] LABS: Calcium 8.9 MG/DL (8.5-10.1); Osmolality,Calculated 285.1 MOS/KG (273-304); Potassium 3.6 MMOL/L (3.5-5.1)
[2018-05-03] MEDS: CARVEDILOL 6.25 MG TABLET PO SCH (08:01)
== END 2018-05-03 07:56 | disposition home or self-care (01) | DRG 309 ==
LOC: N.ED 19:35 → N.EDINP 19:35 → N.ICU 22:45
PROVIDERS: ADMIT Internal Medicine Cardiovascular Disease; ATTEND Internal Medicine Cardiovascular Disease

== ENCOUNTER 2019-01-30 11:40 | Inpatient (IN) ==
[2019-01-30] MEDS ORDERED: ONDANSETRON 4 MG/2 ML VIAL IV PRN (11:52)
[2019-01-30] MEDS ORDERED: LACTATED RINGERS 1,000 ML IV SCH (12:00)
[2019-01-30] MEDS ORDERED: miSOPROStol 200 MCG TABLET VAG ONE (12:10)
[2019-01-30] MEDS ORDERED: HYDROmorphone 2 MG/1 ML VIAL IV SCH (12:30)
[2019-01-30 12:33] LABS: Basophils % 0.5 % (0.0-0.8); Eosinophils # 0.1 10*3/uL (0.0-0.87); Eosinophils % 1.1 % (0.00-10.9); Hematocrit 38.6 VOL% (35.7-47.0); Immature Granulocytes % 0.3 %; Immature Granulocytes Absolute 0.02 #; Lymphocytes # 1.6 10*3/uL (1.4-4.0); Lymphocytes % 24.8 % (21.3-54.2); Mean Corpuscular HGB Conc 33.7 GM/DL (32-36); Mean Corpuscular Volume 94.8 FL (87-102); Mean Platelet Volume 11.2 FL (9.6-12.0); Monocytes % 6.5 % (1.7-12.7); Neutrophils % 66.8 % (38.7-73.9); Platelet Count 171 T/CUMM (130-400); Red Blood Count 4.07 MC/CUMM (3.8-5.5); Red Cell Distribution Width 12.7 % (9.3-17.3); White Blood Count 6.5 T/CUMM (4-12)
[2019-01-30 14:10] LABS: Albumin 3.4 G/DL (3.4-5.0); Bilirubin,Total 0.4 MG/DL (0.2-1.0); Osmolality,Calculated 278.3 MOS/KG (273-304); Total Protein 7.6 G/DL (6.4-8.3)
[2019-01-30] MEDS ORDERED: HYDROmorphone 2 MG/1 ML VIAL IV PRN (16:57)
[2019-01-30] MEDS: miSOPROStol 200 MCG TABLET VAG SCH (18:37)
[2019-01-30] MEDS: CARVEDILOL 6.25 MG TABLET PO SCH (21:21)
[2019-01-30] MEDS: FUROSEMIDE 40 MG TABLET PO SCH (21:21)
[2019-01-31] MEDS: miSOPROStol 200 MCG TABLET VAG SCH (00:31)
[2019-01-31] MEDS ORDERED: OXYTOCIN/LR 20 UNIT/1,000 ML BAG IV ONE (04:31)
[2019-01-31] MEDS ORDERED: OXYTOCIN/LR 20 UNIT/1,000 ML BAG IV SCH (05:00)
[2019-01-31] MEDS ORDERED: miSOPROStol 200 MCG TABLET RECTAL ONE (06:00)
[2019-01-31 06:20] LABS: Basophils % 0.5 % (0.0-0.8); Eosinophils # 0.1 10*3/uL (0.0-0.87); Eosinophils % 0.6 % (0.00-10.9); Hematocrit 38.6 VOL% (35.7-47.0); Immature Granulocytes % 0.3 %; Immature Granulocytes Absolute 0.03 #; Lymphocytes # 2.1 10*3/uL (1.4-4.0); Lymphocytes % 23.6 % (21.3-54.2); Mean Corpuscular HGB Conc 33.7 GM/DL (32-36); Mean Corpuscular Volume 93.9 FL (87-102); Mean Platelet Volume 11.3 FL (9.6-12.0); Monocytes % 7.7 % (1.7-12.7); Neutrophils % 67.3 % (38.7-73.9); Platelet Count 190 T/CUMM (130-400); Red Blood Count 4.11 MC/CUMM (3.8-5.5); Red Cell Distribution Width 12.7 % (9.3-17.3); White Blood Count 8.8 T/CUMM (4-12)
[2019-01-31] MEDS ORDERED: FAMOTIDINE 20 MG/2 ML VIAL IV ONE (06:30)
[2019-01-31] MEDS ORDERED: CITRIC ACID/SODIUM CITRATE 30 ML UDCUP PO ONE (06:30)
[2019-01-31 06:39] LABS: Calcium 8.7 MG/DL (8.5-10.1)
[2019-01-31] MEDS ORDERED: ONDANSETRON 4 MG/2 ML VIAL IV PRN ×2 (08:02→08:19)
[2019-01-31] MEDS ORDERED: HYDROmorphone 2 MG/1 ML VIAL IV PRN (08:02)
[2019-01-31] MEDS ORDERED: OXYTOCIN 10 UNIT/ML VIAL ONE (08:02)
[2019-01-31 08:15] LABS: Apearance,Urine CLEAR (Clear); Bacteria,Urine Occasional /HPF (Few); Bilirubin,Urine Negative (Negative); Blood, Urine Negative (Negative); Glucose,Urine (UA) Negative (Negative); Ketones,Urine Negative (Negative); Mucus,Urine Occasional /LPF (Occasional); Nitrite,Urine Negative (Negative); Protein,Urine Negative; Urine Color Yellow (Yellow); Urine Specific Gravity 1.011 (1.001-1.035); Urine Urobilinogen < 2.0 EU/DL (0.2-1.0); WBC,Urine <1 /HPF (0-6)
[2019-01-31] MEDS ORDERED: fentaNYL 100 MCG/2 ML VIAL ONE (08:18)
[2019-01-31] MEDS ORDERED: MIDAZOLAM 2 MG/2 ML VIAL ONE (08:18)
[2019-01-31] MEDS ORDERED: WITCH HAZEL PADS 100/JAR TOP PRN (08:19)
[2019-01-31] MEDS ORDERED: HYDROCORTISONE 2.5% RECTAL CREAM 30 GM TUBE TOP PRN (08:19)
[2019-01-31] MEDS ORDERED: PHENYLEPHRINE 1 MG/10 ML SYRINGE IV ONE (08:19)
[2019-01-31] MEDS ORDERED: BISACODYL 10 MG SUPP RECTAL PRN (08:19)
[2019-01-31] MEDS ORDERED: ACETAMINOPHEN 325 MG TABLET PO PRN (08:19)
[2019-01-31] MEDS ORDERED: LANOLIN 50% CREAM 0.3 OZ TUBE TOP PRN (08:19)
[2019-01-31] MEDS ORDERED: OXYTOCIN/LR 30 UNIT/1,000 ML BAG IV ONE (08:19)
[2019-01-31] MEDS ORDERED: RHO(D) IMMUNE GLOBULIN 300 MCG SYRINGE IM ONE ×2 (08:19→15:38)
[2019-01-31] MEDS ORDERED: BENZOCAINE 20%/MENTHOL 0.5% SPRAY 56 GM CAN TOP PRN (08:19)
[2019-01-31] MEDS ORDERED: DIPH/TET/ACEL PERT BOOSTER VACCINE 0.5 ML VIAL IM ONE (08:19)
[2019-01-31] MEDS ORDERED: MEASLES/MUMPS/RUBELLA VACCINE 0.5 ML VIAL SUBCUT ONE (08:19)
[2019-01-31] MEDS ORDERED: IBUPROFEN 800 MG TABLET PO PRN (08:19)
[2019-01-31] MEDS ORDERED: ePHEDrine 50 MG/ML AMP ONE (08:19)
[2019-01-31] MEDS ORDERED: ETOMIDATE 40 MG/20 ML VIAL IV ONE (08:19)
[2019-01-31] MEDS ORDERED: SUCCINYLCHOLINE 200 MG/10 ML VIAL ONE (08:19)
[2019-01-31] MEDS ORDERED: DOCUSATE SODIUM 100 MG CAPSULE PO SCH (09:00)
[2019-01-31] MEDS ORDERED: POTASSIUM CHLORIDE 20 MEQ TABLET PO SCH (09:00)
[2019-01-31] MEDS: CARVEDILOL 6.25 MG TABLET PO SCH (14:37)
[2019-01-31] MEDS: FUROSEMIDE 40 MG TABLET PO SCH (14:37)
[2019-01-31 16:29] VITALS: BP 121/91
== END 2019-01-31 16:22 | disposition home or self-care (01) | DRG 544 ==
LOC: N.LDOUT 11:44 → N.LD 11:45 → N.4E 01-31 09:37
PROVIDERS: ADMIT Specialist; ATTEND Specialist